=== PATIENT | female | born 1940 | race Caucasian/White ===

== ENCOUNTER 2019-04-20 15:24 | Inpatient (IN) | payer MEDICARE, MEDICAID ==
[2019-04-20] MEDS ORDERED: Sodium Chloride 0.9% 1,000 ML IV SCH (16:15)
--- NOTE | 2019-04-20 16:27 | CR ---
Hip Min 2V or 3V w Pelvis Rt CLINICAL HISTORY: Right hip pain FINDINGS: There is a is placed subcapital fracture of the right femur. There are degenerative changes in the right hip joint. Patient has left hip prosthesis. Bones are osteoporotic. IMPRESSION: Displaced subcapital fracture of the right femur Left hip arthroplasty Osteoporosis
--- NOTE | 2019-04-20 16:29 | CR ---
Cervical Spine 2V or 3V CLINICAL HISTORY: Fall, neck pain FINDINGS: Study is very limited the. Patient slightly rotated. There are severe diffuse degenerative disc disease. There is severe diffuse osteoarthritis. There are calcifications in both carotid bifurcations. IMPRESSION: Very limited study. No obvious subluxation. Subtle fracture or subluxation would be difficult to exclude. Severe degenerative disc disease and severe osteoarthritis If clinically relevant CT cervical spine should be considered
--- NOTE | 2019-04-20 16:34 | EDM.PDOC ---
ED HPI GENERAL MEDICAL PROBLEM - General Chief Complaint: Lower Extremity Injury/Pain Stated Complaint: FELL AND HURT RI HIP Time Seen by Provider: 04/20/19 16:28 Source of Information: Reports: Patient, EMS History Limitations: Reports: No Limitations - History of Present Illness INITIAL COMMENTS - FREE TEXT/NARRATIVE: pt arrived from [facility] in [place]. She was in her kitchen and she reached to something to drink and she fell and she is not sure why she fell. She had immediate pain in the rt hip. She was not able to get up. She also is having pain in the rt side of her neck/ She has some abrasions on her rt hand. She is current with her tetanus. Onset: Today, Sudden Duration: Hour(s): Location: Reports: Neck, Lower Extremity, Right Associated Symptoms: Reports: Other (pain on the rt side of her neck. ) Right Lower Hip Pain Score (Numeric/FACES): 10 Right Anterior Shoulder Pain Score (Numeric/FACES): 5 - Related Data Allergies Allergy/AdvReac Type Severity Reaction Status Date / Time Sulfa (Sulfonamide Allergy Cannot Verified 04/20/19 15:43 Antibiotics) Remember Home Meds: Home Meds Aspirin [Halfprin] 81 mg PO DAILY 04/20/19 [History] Ergocalciferol (Vitamin D2) [Vitamin D2] 2,000 unit PO DAILY 04/20/19 [History] Levothyroxine 75 mcg PO ACBREAKFAST 04/20/19 [History] Lisinopril [Zestril] 10 mg PO DAILY 04/20/19 [History] Nystatin [Nystatin Crm] 30 gm TOP BID 04/20/19 [History] Oxybutynin [Oxybutynin ER] 10 mg PO DAILY 04/20/19 [History] Pioglitazone [Actos] 30 mg PO DAILY 04/20/19 [History] Sertraline [Zoloft] 25 mg PO DAILY 04/20/19 [History] atorvaSTATin [Lipitor] 40 mg PO BEDTIME 04/20/19 [History] Past Medical History HEENT History: Reports: Impaired Vision Cardiovascular History: Reports: CAD, High Cholesterol, Hypertension Gastrointestinal History: Reports: GERD Genitourinary History: Reports: Urinary Incontinence, Other (See Below) Other Genitourinary History: renal insufficiency Musculoskeletal History: Reports: Osteoarthritis, Other (See Below) Other Musculoskeletal History: restless leg syndrome, spinal stenosis Neurological History: Reports: Vertigo Psychiatric History: Reports: Anxiety Endocrine/Metabolic History: Reports: Diabetes, Type II, Hypothyroidism, Other ( See Below) Other Endocrine/Metabolic History: neuropathy - Infectious Disease History Infectious Disease History: Reports: Chicken Pox, Measles, Mumps Social & Family History - Tobacco Use Smoking Status *Q: Never Smoker - Caffeine Use Caffeine Use: Reports: Coffee - Recreational Drug Use Recreational Drug Use: No Review of Systems - Review of Systems Review Of Systems: See Below Constitutional: Reports: No Symptoms Eyes: Reports: No Symptoms Ears: Reports: No Symptoms Nose: Reports: No Symptoms Mouth/Throat: Reports: No Symptoms Respiratory: Reports: No Symptoms Cardiovascular: Reports: No Symptoms GI/Abdominal: Reports: No Symptoms Genitourinary: Reports: No Symptoms Musculoskeletal: Reports: Other (pain in her rt hip area and pain in the rt side of her neck. ) Neurological: Reports: No Symptoms Psychiatric: Reports: Anxiety ED EXAM, GENERAL - Physical Exam Exam: See Below Free Text/Narrative:: pt arrived with pain in the rt hip and pain on the rt side of her neck. Her rt hand has some small abrasions. She was not knocked out. i Exam Limited By: No Limitations General Appearance: Alert, Anxious, Moderate Distress, Other (pupils equal and reactive. ) Ears: Normal TMs Nose: Normal Inspection Throat/Mouth: Normal Inspection Head: Atraumatic Neck: Tender Lateral, Other (pt is tender in the rt post cervical area. ) Respiratory/Chest: No Respiratory Distress Cardiovascular: Regular Rate, Rhythm GI/Abdominal: Soft, Non-Tender (Female) Exam: Deferred, Other ( olivas cath was inserted. ) Rectal (Female) Exam: Deferred Back Exam: Normal Inspection Extremities: Other ( rt hip is very tender to palpate. Any movement causes alot of pain. ) Neurological: Alert, Oriented, Normal Cognition Psychiatric: Normal Affect Course - Vital Signs Last Recorded V/S: Last Vital Signs Temp 36.5 C 04/20/19 16:01 Pulse 72 04/20/19 17:05 Resp 16 04/20/19 17:05 BP 146/55 H 04/20/19 17:05 Pulse Ox 100 04/20/19 17:05 - Orders/Labs/Meds Orders: Active Orders 24 hr Category Date Time Status EKG Documentation Completion [RC] ASDIRECTED Care 04/20/19 16:34 Active Olivas Catheter Insertion [Insert Urinary Catheter] [OM. Care 04/20/19 16:15 Ordered PC] Q24H Urinary Catheter Assessment [RC] ASDIRECTED Care 04/20/19 16:09 Active Chest 1V Frontal [CR] Stat Exams 04/20/19 16:34 Ordered Sodium Chloride 0.9% [Normal Saline] 1,000 ml Med 04/20/19 16:15 Active IV ASDIRECTED EKG 12 Lead [EK] Routine Ther 04/20/19 16:34 Ordered Medication Orders Sodium Chloride (Normal Saline) 1,000 mls @ 500 mls/hr IV ASDIRECTED DANYEL Last Admin: 04/20/19 16:48 Dose: 500 mls/hr Labs: Laboratory Tests 04/20/19 04/20/19 04/20/19 Range/Units 16:20 16:20 16:48 WBC 6.2 (4.5-11.0) K/uL RBC 3.52 (3.30-5.50) M/uL Hgb 11.2 L (12.0-15.0) g/dL Hct 35.1 L (36.0-48.0) % MCV 100 H (80-98) fL MCH 32 H (27-31) pg MCHC 32 (32-36) % Plt Count 216 (150-400) K/uL Neut % (Auto) 80 H (36-66) % Lymph % (Auto) 15 L (24-44) % [place] % (Auto) 5 (2-6) % Eos % (Auto) 0 L (2-4) % Baso % (Auto) 0 (0-1) % Sodium 141 (140-148) mmol/L Potassium 3.6 (3.6-5.2) mmol/L Chloride 105 (100-108) mmol/L Carbon Dioxide 27 (21-32) mmol/L Anion Gap 9.2 (5.0-14.0) mmol/L BUN 18 (7-18) mg/dL Creatinine 0.8 (0.6-1.0) mg/dL Est Cr Clr Drug Dosing 51.31 mL/min Estimated GFR (MDRD) > 60 (>60) Glucose 129 H (74-106) mg/dL Calcium 8.5 (8.5-10.1) mg/dL Total Bilirubin 0.6 (0.2-1.0) mg/dL AST 37 (15-37) U/L ALT 28 (12-78) U/L Alkaline Phosphatase 62 (46-116) U/L Total Protein 6.1 L (6.4-8.2) g/dL Albumin 3.2 L (3.4-5.0) g/dL Globulin 2.9 (2.3-3.5) g/dL Albumin/Globulin Ratio 1.1 L (1.2-2.2) Urine Color Yellow (YELLOW) Urine Appearance Slightly cloudy A (CLEAR) Urine pH 7.0 (5.0-8.0) Ur Specific [place] 1.020 (1.008-1.030) Urine Protein Negative (NEGATIVE) mg/dL Urine Glucose (UA) Negative (NEGATIVE) mg/dL Urine Ketones Negative (NEGATIVE) mg/dL Urine Occult Blood Small H (NEGATIVE) Urine Nitrite Negative (NEGATIVE) Urine Bilirubin Negative (NEGATIVE) Urine Urobilinogen 1.0 (0.2-1.0) EU/dL Ur Leukocyte Esterase Negative (NEGATIVE) Urine RBC 5-10 H (0-5) Urine WBC 0-5 (0-5) Ur Epithelial Cells Rare Amorphous Sediment Not seen Urine Bacteria Few Urine Mucus Not seen Meds: Medications Generic Name Dose Route Start Last Admin Trade Name Freq PRN Reason Stop Dose Admin Sodium Chloride 1,000 mls @ 500 mls/hr 04/20/19 16:15 04/20/19 16:48 Normal Saline IV 500 mls/hr ASDIRECTED [facility] Administration - Re-Assessments/Exams Free Text/Narrative Re-Assessment/Exam: 04/20/19 17:10 pt was tender on the rt post cervical area. A cat scan of her neck was neg. Her rt hip shows a fracture of the neck. Dr randle saw the pt and he plans to do surgery tomorrow. Her hg is on the low side. Her ekg looks ok. Dr aBss will admit and she will have surgery tomorrow. 04/20/19 17:12 Departure - Departure Time of Disposition: 17:12 Disposition: Admitted As Inpatient 65 Condition: Fair Clinical Impression: Closed right hip fracture, Cervical paraspinous muscle spasm, Abrasion of right hand - Discharge Information Referrals: PCP,None [Primary Care Provider] - Forms: ED Department Discharge Care Plan Goals: admit to Dr Bass Sepsis Event Note - Evaluation Sepsis Screening Result: No Definite Risk - Focused Exam Vital Signs: Vital Signs Temp Pulse Resp BP Pulse Ox 04/20/19 17:05 72 16 146/55 H 100 04/20/19 16:01 36.5 C 76 22 H 117/89 96 04/20/19 15:30 36.5 C 76 22 H 117/89 96 Date Exam was Performed: 04/20/19 Time Exam was Performed: 17:07 - My Orders Last 24 Hours: My Active Orders 04/20/19 16:09 Urinary Catheter Assessment [RC] ASDIRECTED 04/20/19 16:15 Olivas Catheter Insertion [Insert Urinary Catheter] [OM.PC] Q24H Sodium Chloride 0.9% [Normal Saline] 1,000 ml IV ASDIRECTED 04/20/19 16:34 EKG Documentation Completion [RC] ASDIRECTED Chest 1V Frontal [CR] Stat EKG 12 Lead [EK] Routine - Assessment/Plan Last 24 Hours: My Active Orders 04/20/19 16:09 Urinary Catheter Assessment [RC] ASDIRECTED 04/20/19 16:15 Olivas Catheter Insertion [Insert Urinary Catheter] [OM.PC] Q24H Sodium Chloride 0.9% [Normal Saline] 1,000 ml IV ASDIRECTED 04/20/19 16:34 EKG Documentation Completion [RC] ASDIRECTED Chest 1V Frontal [CR] Stat EKG 12 Lead [EK] Routine
--- NOTE | 2019-04-20 17:03 | CRLCT ---
Indication: Pain in the right side of the neck. Technique: CT cervical spine without IV contrast. Coronal and sagittal reconstructions. Comparison: Cervical spine radiograph 04/20/2019. Findings: No acute fracture or traumatic malalignment of the cervical spine. Minimal retrolisthesis of C3 on C4. Mild anterolisthesis of C7 on T1 and T1 on T2. Spondylotic changes of the cervical spine including hypertrophic spurring, facet arthropathy, and disc space narrowing. Moderate neural foraminal narrowing on the right at C3-C4, mild right and moderate left at C4-C5, mild bilaterally at C5-C6, and mild on the left at C6-C7. Multilevel posterior disc osteophyte complexes which cause mild spinal canal stenosis at C4-C5 and C5-C6. Visualized intracranial contents are unremarkable. Carotid bulb calcifications bilaterally. The thyroid gland is diminutive. Biapical pleural scarring. Paraspinal soft tissues are unremarkable. Impression: 1. No acute fracture or traumatic malalignment of the cervical spine. 2. Spondylotic changes of the cervical spine. 3. Minimal retrolisthesis of C3 on C4. Mild anterolisthesis of C7 on T1 and T1 on T2. 4. Varying degrees of multilevel bilateral neural foraminal narrowing. 5. Posterior disc osteophyte complexes which cause mild spinal canal stenosis at C4-C5 and C5-C6. Please note that all CT scans at this facility use dose modulation, iterative reconstruction, and/or weight-based dosing when appropriate to reduce radiation dose to as low as reasonably achievable. Dictated by Chandni Rodriguez MD @ Apr 20 2019 4:53PM Signed by Dr. Chandni Rodriguez @ Apr 20 2019 5:03PM
--- NOTE | 2019-04-20 17:56 | PCM.HP.2 ---
H&P History of Present Illness - General Date of Service: 04/20/19 Admit Problem/Dx: Admission Diagnosis/Problem Admission Diagnosis/Problem Fracture of hip Source of Information: Patient, Provider History Limitations: Reports: No Limitations - History of Present Illness Initial Comments - Free Text/Narative: CC: I hurt my hip HPI: Pinky presents to the emergency room today after falling and landing on her right hip. She reported immediate severe sharp right hip pain. The pain did not radiate. Pain was better when she rolled onto her left side. She has not required any pain medication in the emergency room. Any sort of movement of the right leg causes severe pain but as long as she is sitting still she is fairly comfortable. The fall happened while she was trying to catch something that had slipped out of her hand. She lost her balance and fell down striking her right hip and her right arm as well as the right side of her head. She did not lose consciousness. She does complain of some achy pain in the right side of her neck. No complaints of pain in the right arm or shoulder. She does have some pain in the right hand in the area of the skin tear. She has felt well prior to onset of the fall. No recent difficulties with fevers or chills. No nausea or abdominal pain. No change in bowel or bladder habits. She does report a slight increase in her tremors over the past few days. She is not very active and gets around using a walker or a cane. She has not had previous difficulty with surgeries or anesthesia other than she thinks that she is sensitive to the medications and needs a smaller dose than usual. Work-up in the emergency room revealed evidence for a right hip fracture near the femoral head. This is a dislocated fracture. X-rays and CT of the cervical spine were unremarkable for fracture. The patient will be admitted for operative management of the right hip fracture. Right Lower Hip Pain Score (Numeric/FACES): 10 Right Anterior Shoulder Pain Score (Numeric/FACES): 5 - Related Data Allergies/Adverse Reactions: Allergies Allergy/AdvReac Type Severity Reaction Status Date / Time Sulfa (Sulfonamide Allergy Cannot Verified 04/20/19 15:43 Antibiotics) Remember Home Medications: Home Meds Aspirin [Halfprin] 81 mg PO DAILY 04/20/19 [History] Ergocalciferol (Vitamin D2) [Vitamin D2] 2,000 unit PO DAILY 04/20/19 [History] Levothyroxine 75 mcg PO ACBREAKFAST 04/20/19 [History] Lisinopril [Zestril] 10 mg PO DAILY 04/20/19 [History] Nystatin [Nystatin Crm] 30 gm TOP BID 04/20/19 [History] Oxybutynin [Oxybutynin ER] 10 mg PO DAILY 04/20/19 [History] Pioglitazone [Actos] 30 mg PO DAILY 04/20/19 [History] Sertraline [Zoloft] 25 mg PO DAILY 04/20/19 [History] atorvaSTATin [Lipitor] 40 mg PO BEDTIME 04/20/19 [History] Past Medical History HEENT History: Reports: Impaired Vision Cardiovascular History: Reports: CAD, High Cholesterol, Hypertension Gastrointestinal History: Reports: GERD Genitourinary History: Reports: Urinary Incontinence, Other (See Below) Other Genitourinary History: renal insufficiency Musculoskeletal History: Reports: Osteoarthritis, Other (See Below) Other Musculoskeletal History: restless leg syndrome, spinal stenosis Neurological History: Reports: Vertigo Psychiatric History: Reports: Anxiety Endocrine/Metabolic History: Reports: Diabetes, Type II, Hypothyroidism, Other ( See Below) Other Endocrine/Metabolic History: neuropathy - Infectious Disease History Infectious Disease History: Reports: Chicken Pox, Measles, Mumps Social & Family History - Family History Other Family History: No family history of difficulty with anesthesia - Tobacco Use Smoking Status *Q: Never Smoker - Caffeine Use Caffeine Use: Reports: Coffee - Alcohol Use Alcohol Use History: No - Recreational Drug Use Recreational Drug Use: No H&P Review of Systems - Review of Systems: Review Of Systems: See Below Free Text/Narrative: A complete 12 point review of systems was obtained. Pertinent positives and negatives are noted in the history of present illness. All other systems were reviewed and were negative except as noted. Exam - Exam Exam: See Below - Vital Signs Vital Signs: Last Vital Signs Temp 36.5 C 04/20/19 16:01 Pulse 72 04/20/19 17:05 Resp 16 04/20/19 17:05 BP 146/55 H 04/20/19 17:05 Pulse Ox 100 04/20/19 17:05 Weight: 63.503 kg - Exam Quality Assessment: No: Supplemental Oxygen General: Alert, Oriented, Cooperative. No: Mild Distress HEENT: Conjunctiva Clear, Mucosa Moist & [place]. No: Scleral Icterus Neck: Supple. No: Trachea Midline, Lymphadenopathy Lungs: Clear to Auscultation, Normal Respiratory Effort Cardiovascular: Regular Rate, Regular Rhythm. No: Systolic Murmur GI/Abdominal Exam: Normal Bowel Sounds, Soft, Non-Tender, No Distention Extremities: No Pedal Edema, Other (right leg shortened ). No: Increased Warmth Peripheral Pulses: 2+: Dorsalis Pedis (L), Dorsalis Pedis (R) Skin: Warm, Dry Neuro Extensive - Mental Status: Alert, Oriented x3, Nl Response to Commands Neuro Extensive - Motor, Sensory, Reflexes: No: Dysarthria, Abnormal Motor, Tremor Psychiatric: Alert, Normal Affect - Patient Data Lab Results Last 24 hrs: Laboratory Results - last 24 hr 04/20/19 04/20/19 04/20/19 Range/Units 16:20 16:20 16:48 WBC 6.2 (4.5-11.0) K/uL RBC 3.52 (3.30-5.50) M/uL Hgb 11.2 L (12.0-15.0) g/dL Hct 35.1 L (36.0-48.0) % MCV 100 H (80-98) fL MCH 32 H (27-31) pg MCHC 32 (32-36) % Plt Count 216 (150-400) K/uL Neut % (Auto) 80 H (36-66) % Lymph % (Auto) 15 L (24-44) % [place] % (Auto) 5 (2-6) % Eos % (Auto) 0 L (2-4) % Baso % (Auto) 0 (0-1) % Sodium 141 (140-148) mmol/L Potassium 3.6 (3.6-5.2) mmol/L Chloride 105 (100-108) mmol/L Carbon Dioxide 27 (21-32) mmol/L Anion Gap 9.2 (5.0-14.0) mmol/L BUN 18 (7-18) mg/dL Creatinine 0.8 (0.6-1.0) mg/dL Est Cr Clr Drug Dosing 51.31 mL/min Estimated GFR (MDRD) > 60 (>60) Glucose 129 H (74-106) mg/dL Calcium 8.5 (8.5-10.1) mg/dL Total Bilirubin 0.6 (0.2-1.0) mg/dL AST 37 (15-37) U/L ALT 28 (12-78) U/L Alkaline Phosphatase 62 (46-116) U/L Total Protein 6.1 L (6.4-8.2) g/dL Albumin 3.2 L (3.4-5.0) g/dL Globulin 2.9 (2.3-3.5) g/dL Albumin/Globulin Ratio 1.1 L (1.2-2.2) Urine Color Yellow (YELLOW) Urine Appearance Slightly cloudy A (CLEAR) Urine pH 7.0 (5.0-8.0) Ur Specific [place] 1.020 (1.008-1.030) Urine Protein Negative (NEGATIVE) mg/dL Urine Glucose (UA) Negative (NEGATIVE) mg/dL Urine Ketones Negative (NEGATIVE) mg/dL Urine Occult Blood Small H (NEGATIVE) Urine Nitrite Negative (NEGATIVE) Urine Bilirubin Negative (NEGATIVE) Urine Urobilinogen 1.0 (0.2-1.0) EU/dL Ur Leukocyte Esterase Negative (NEGATIVE) Urine RBC 5-10 H (0-5) Urine WBC 0-5 (0-5) Ur Epithelial Cells Rare Amorphous Sediment Not seen Urine Bacteria Few Urine Mucus Not seen Result Diagrams: 04/20/19 16:20 04/20/19 16:20 Imaging Impressions Last 24 hrs: C spine XR - no fracture. severe arthritis CT cervical spine - no fracture. severe arthritis XR right hip - images personally reviewed - fracture of the right femur near the femoral head with dislocation. EKG INTERPRETATION EKG Date: 04/20/19 Rhythm: NSR Rate (Beats/Min): 72 [place]: Normal P-Wave: Present QRS: Normal ST-T: Normal QT: Normal Sepsis Event Note - Evaluation Sepsis Screening Result: No Definite Risk - Focused Exam Vital Signs: Vital Signs Temp Pulse Resp BP Pulse Ox 04/20/19 17:05 72 16 146/55 H 100 04/20/19 16:01 36.5 C 76 22 H 117/89 96 04/20/19 15:30 36.5 C 76 22 H 117/89 96 Date Exam was Performed: 04/20/19 Time Exam was Performed: 18:17 *Q Meaningful Use (ADM) - VTE *Q VTE Pharmacological Contraindications *Q: Patient Scheduled Surgery - VTE Risk Assess *Q Each Risk Factor Represents 1 Point: None Total Score 1 Point Risk Factors: 0 Each Risk Factor Represents 2 Points: Major surgery greater than 45 minutes Total Score 2 Point Risk Factors: 2 Each Risk Factor Represents 3 Points: Age 75 Years or Greater Total Score 3 Point Risk Factors: 3 Each Risk Factor Represents 5 Points: Hip, Pelvis or Leg Fracture, Less than 1 month Total Score 5 Point Risk Factors: 5 Venous Thromboembolism Risk Factor Score *Q: 10 - Problem List (1) Closed right hip fracture SNOMED Code(s): 587403746 ICD Code: S72.001A - FRACTURE OF UNSP PART OF NECK OF RIGHT FEMUR, INIT Status: Acute Current Visit: Yes Qualifiers: Encounter type: initial encounter Qualified Code(s): S72.001A - Fracture of unspecified part of neck of right femur, initial encounter for closed fracture (2) DM II (diabetes mellitus, type II), controlled SNOMED Code(s): 45440429, 775669922 ICD Code: E11.9 - TYPE 2 DIABETES MELLITUS WITHOUT COMPLICATIONS Status: Chronic Current Visit: Yes Qualifiers: Diabetes mellitus mcc insulin use: without oil heaterman use Diabetes mellitus complication status: without complication Qualified Code(s): E11.9 - Type 2 diabetes mellitus without complications (3) Hypothyroidism SNOMED Code(s): 83623743 ICD Code: E03.9 - HYPOTHYROIDISM, UNSPECIFIED Status: Chronic Current Visit: Yes Qualifiers: Hypothyroidism type: acquired Qualified Code(s): E03.9 - Hypothyroidism, unspecified Problem List Initiated/Reviewed/Updated: Yes Orders Last 24hrs: Active Orders 24 hr Category Date Time Status Patient Status Manage Transfer [TRANSFER] Routine ADT 04/20/19 17:49 Ordered EKG Documentation Completion [RC] ASDIRECTED Care 04/20/19 16:34 Active Tenorio Catheter Insertion [Insert Urinary Catheter] [OM. Care 04/20/19 16:15 Ordered PC] Q24H Urinary Catheter Assessment [RC] ASDIRECTED Care 04/20/19 16:09 Active Chest 1V Frontal [CR] Stat Exams 04/20/19 16:34 Ordered Sodium Chloride 0.9% [Normal Saline] 1,000 ml Med 04/20/19 16:15 Active IV ASDIRECTED Resuscitation Status Routine Resus Stat 04/20/19 17:51 Ordered EKG 12 Lead [EK] Routine Ther 04/20/19 16:34 Ordered Medication Orders Sodium Chloride (Normal Saline) 1,000 mls @ 500 mls/hr IV ASDIRECTED DANYEL Last Admin: 04/20/19 16:48 Dose: 500 mls/hr Assessment/Plan Comment:: ASSESSMENT AND PLAN - Closed, displaced fracture of the right femoral neck-secondary to fall at home. Surgical intervention is indicated. Patient does not have a very good functional status but otherwise I do not see any obvious contraindication to surgical intervention. No significant cardiac history. No concerning personal or family history of difficulty with anesthesia. No evidence for active infection. Patient is in optimal achievable medical condition at this time for a semiurgent surgical intervention. -Pain control -Nothing by mouth after midnight -Surgical intervention planned with Dr Carlitos Kiser tomorrow Type 2 diabetes mellitus, controlled-she is on one oral medication. This will be held while she is n.p.o. and in the immediate postop period. -Hold pioglitazone -Low-dose sliding scale insulin with Accu-Cheks Essential hypertension-planning to hold her oral medication until we see how her blood pressure fares postoperatively. -Hold lisinopril Hypothyroidism-she does note an increase in tremors recently. -Continue supplementation -TSH in the morning Maintenance issues - - DVT prophylaxis -mechanical - GI prophylaxis -not indicated - Nutrition -consistent carbohydrates tonight, nothing by mouth after midnight - Tenorio catheter -placed in the emergency room CODE STATUS -full code Admission justification -this patient will be admitted for inpatient services and is medically appropriate meeting medical necessity for inpatient admission as outlined in my documentation. I reasonably expect the patient will require inpatient services that span a period time over 2 midnights. I reasonably expect this patient to be discharged or transferred within 96 hours after admission to the [facility]. Disposition -I would anticipate discharge to a fdc facility for rehab after the hospital stay Primary care physician -Karla Bass M.D. - Mortality Measure Prognosis:: Good
[2019-04-20] MEDS ORDERED: Albuterol 0.083% 2.5 MG/3 ML Neb Soln NEB PRN (18:14)
[2019-04-20] MEDS ORDERED: oxyCODONE 5 MG Tab PO PRN (18:14)
[2019-04-20] MEDS ORDERED: Melatonin 3 MG Tab PO PRN (18:14)
[2019-04-20] MEDS ORDERED: Ondansetron 4 MG Tab.DIS PO PRN (18:14)
[2019-04-20] MEDS ORDERED: Magnesium Hydroxide 400 MG/5 ML Susp 30 ML Cup PO PRN (18:14)
[2019-04-20] MEDS ORDERED: LORazepam 2 MG/ML SDV IVPUSH PRN (18:14)
[2019-04-20] MEDS ORDERED: Ondansetron 4 MG/2 ML SDV IV PRN (18:14)
[2019-04-20] MEDS ORDERED: HYDROmorphone 0.5 MG/0.5 ML Syringe IVPUSH PRN (18:14)
--- NOTE | 2019-04-20 18:20 | CRLCR ---
Indication: Pre Op Technique: A single AP portable view of the chest. Comparison: None Findings: The heart is borderline in size. The lungs are hyperinflated. No infiltrate, pleural effusion, pneumothorax identified. Impression: No acute cardiopulmonary process Dictated by Cherelle Weaver MD @ Apr 20 2019 6:17PM Signed by Dr. Cherelle eWaver @ Apr 20 2019 6:19PM
[2019-04-20] MEDS: atorvaSTATin 20 MG Tab PO SCH (20:43)
[2019-04-20] MEDS: Acetaminophen 500 MG Tab PO SCH (20:43)
[2019-04-20] MEDS: Insulin Lispro 100 Unit/ML 3 ML KwikPen SUBCUT SCH (20:53)
[2019-04-20] MEDS: Sodium Chloride 0.9% 1,000 ML IV SCH (22:29)
[2019-04-21] MEDS: Insulin Lispro 100 Unit/ML 3 ML KwikPen SUBCUT SCH ×4 (08:40→21:00)
[2019-04-21] MEDS: Levothyroxine 25 MCG Tab PO SCH (08:40)
[2019-04-21] MEDS: Acetaminophen 500 MG Tab PO SCH ×3 (09:59→20:59)
[2019-04-21] MEDS: Oxybutynin 5 MG Tab PO SCH ×2 (09:59→20:59)
[2019-04-21] MEDS: Aspirin 81 MG Tab.EC PO SCH (09:59)
[2019-04-21] MEDS: Sertraline 25 MG Tab PO SCH (10:00)
[2019-04-21] MEDS: Sodium Chloride 0.9% 1,000 ML IV SCH ×2 (11:47→19:15)
--- NOTE | 2019-04-21 12:26 | PCM.CONS ---
H&P History of Present Illness - General Date of Service: 04/20/19 Admit Problem/Dx: Admission Diagnosis/Problem Admission Diagnosis/Problem Fracture of hip Source of Information: Patient History Limitations: Reports: No Limitations - History of Present Illness Initial Comments - Free Text/Narative: 78 year old female presented to the ED with right hip pain after a fall at home today. Attempted to catch something that had slipped from her hands and fell onto her right side. Was not able to get up or weight bear on her right leg. hit her right arm as well, mild pain there with a small skin tear on her hand. No LOC, did not hit her head. 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 Onset of Symptoms: Reports: Today, Sudden Location: Reports: Lower Extremity, Right Quality: Reports: Sharp, Stabbing Severity: Severe Improves with: Reports: Immobilization Worsens with: Reports: Movement Associated Symptoms: Reports: No Other Symptoms Right Lower Hip Pain Score (Numeric/FACES): 7 Right Anterior Shoulder Pain Score (Numeric/FACES): 5 - Related Data Allergies/Adverse Reactions: Allergies Allergy/AdvReac Type Severity Reaction Status Date / Time Sulfa (Sulfonamide Allergy Cannot Verified 04/20/19 15:43 Antibiotics) Remember Home Medications: Home Meds Aspirin [Halfprin] 81 mg PO DAILY 04/20/19 [History] Ergocalciferol (Vitamin D2) [Vitamin D2] 2,000 unit PO DAILY 04/20/19 [History] Levothyroxine 75 mcg PO ACBREAKFAST 04/20/19 [History] Lisinopril [Zestril] 10 mg PO DAILY 04/20/19 [History] Nystatin [Nystatin Crm] 30 gm TOP BID 04/20/19 [History] Oxybutynin [Oxybutynin ER] 10 mg PO DAILY 04/20/19 [History] Pioglitazone [Actos] 30 mg PO DAILY 04/20/19 [History] Sertraline [Zoloft] 25 mg PO DAILY 04/20/19 [History] atorvaSTATin [Lipitor] 40 mg PO BEDTIME 04/20/19 [History] Past Medical History HEENT History: Reports: Impaired Vision Cardiovascular History: Reports: CAD, High Cholesterol, Hypertension Gastrointestinal History: Reports: GERD Genitourinary History: Reports: Urinary Incontinence, Other (See Below) Other Genitourinary History: renal insufficiency Musculoskeletal History: Reports: Osteoarthritis, Other (See Below) Other Musculoskeletal History: restless leg syndrome, spinal stenosis Neurological History: Reports: Vertigo Psychiatric History: Reports: Anxiety Endocrine/Metabolic History: Reports: Diabetes, Type II, Hypothyroidism, Other ( See Below) Other Endocrine/Metabolic History: neuropathy - Infectious Disease History Infectious Disease History: Reports: Chicken Pox, Measles, Mumps Social & Family History - Family History Other Family History: No family history of difficulty with anesthesia - Tobacco Use Smoking Status *Q: Never Smoker Second Hand Smoke Exposure: No - Caffeine Use Caffeine Use: Reports: None - Recreational Drug Use Recreational Drug Use: No Drug Use in Last 12 Months: No H&P Review of Systems - Review of Systems: Review Of Systems: Comprehensive ROS is negative, except as noted in HPI. Exam - Exam Exam: See Below - Vital Signs Vital Signs: Last Vital Signs Temp 37.2 C 04/21/19 11:00 Pulse 71 04/21/19 11:00 Resp 16 04/21/19 11:00 BP 111/47 L 04/21/19 11:00 Pulse Ox 92 L 04/21/19 11:00 Weight: 63.503 kg - Exam General: Alert, Oriented Extremities: Leg Pain, Limited Range of Motion, Other (Pain with log roll, left leg slightly shorter) Peripheral Pulses: 1+: Dorsalis Pedis (L), Dorsalis Pedis (R) Skin: Warm, Dry Neuro Extensive - Mental Status: Alert, Oriented x3, Normal Mood/Affect, Normal Cognition Neuro Extensive - Motor, Sensory, Reflexes: CN II-XII Intact Psychiatric: Alert, Normal Affect, Normal Mood - Patient Data Lab Results Last 24 hrs: Laboratory Results - last 24 hr 04/20/19 04/20/19 04/20/19 Range/Units 16:20 16:20 16:48 WBC 6.2 (4.5-11.0) K/uL RBC 3.52 (3.30-5.50) M/uL Hgb 11.2 L (12.0-15.0) g/dL Hct 35.1 L (36.0-48.0) % MCV 100 H (80-98) fL MCH 32 H (27-31) pg MCHC 32 (32-36) % Plt Count 216 (150-400) K/uL Neut % (Auto) 80 H (36-66) % Lymph % (Auto) 15 L (24-44) % [place] % (Auto) 5 (2-6) % Eos % (Auto) 0 L (2-4) % Baso % (Auto) 0 (0-1) % Sodium 141 (140-148) mmol/L Potassium 3.6 (3.6-5.2) mmol/L Chloride 105 (100-108) mmol/L Carbon Dioxide 27 (21-32) mmol/L Anion Gap 9.2 (5.0-14.0) mmol/L BUN 18 (7-18) mg/dL Creatinine 0.8 (0.6-1.0) mg/dL Est Cr Clr Drug Dosing 51.31 mL/min Estimated GFR (MDRD) > 60 (>60) Glucose 129 H (74-106) mg/dL Calcium 8.5 (8.5-10.1) mg/dL Total Bilirubin 0.6 (0.2-1.0) mg/dL AST 37 (15-37) U/L ALT 28 (12-78) U/L Alkaline Phosphatase 62 (46-116) U/L Total Protein 6.1 L (6.4-8.2) g/dL Albumin 3.2 L (3.4-5.0) g/dL Globulin 2.9 (2.3-3.5) g/dL Albumin/Globulin Ratio 1.1 L (1.2-2.2) TSH, Ultra Sensitive (0.358-3.740) uIU/mL Urine Color Yellow (YELLOW) Urine Appearance Slightly cloudy A (CLEAR) Urine pH 7.0 (5.0-8.0) Ur Specific [place] 1.020 (1.008-1.030) Urine Protein Negative (NEGATIVE) mg/dL Urine Glucose (UA) Negative (NEGATIVE) mg/dL Urine Ketones Negative (NEGATIVE) mg/dL Urine Occult Blood Small H (NEGATIVE) Urine Nitrite Negative (NEGATIVE) Urine Bilirubin Negative (NEGATIVE) Urine Urobilinogen 1.0 (0.2-1.0) EU/dL Ur Leukocyte Esterase Negative (NEGATIVE) Urine RBC 5-10 H (0-5) Urine WBC 0-5 (0-5) Ur Epithelial Cells Rare Amorphous Sediment Not seen Urine Bacteria Few Urine Mucus Not seen Blood Type Gel Antibody Screen Crossmatch 04/21/19 04/21/19 04/21/19 Range/Units 05:30 05:30 08:41 WBC 7.2 (4.5-11.0) K/uL RBC 3.06 L (3.30-5.50) M/uL Hgb 9.6 L (12.0-15.0) g/dL Hct 30.7 L (36.0-48.0) % MCV 100 H (80-98) fL MCH 31 (27-31) pg MCHC 31 L (32-36) % Plt Count 194 (150-400) K/uL Neut % (Auto) (36-66) % Lymph % (Auto) (24-44) % [place] % (Auto) (2-6) % Eos % (Auto) (2-4) % Baso % (Auto) (0-1) % Sodium 140 (140-148) mmol/L Potassium 3.6 (3.6-5.2) mmol/L Chloride 107 (100-108) mmol/L Carbon Dioxide 25 (21-32) mmol/L Anion Gap 8.0 (5.0-14.0) mmol/L BUN 20 H (7-18) mg/dL Creatinine 0.7 (0.6-1.0) mg/dL Est Cr Clr Drug Dosing 58.64 mL/min Estimated GFR (MDRD) > 60 (>60) Glucose 121 H (74-106) mg/dL Calcium 7.8 L (8.5-10.1) mg/dL Total Bilirubin (0.2-1.0) mg/dL AST (15-37) U/L ALT (12-78) U/L Alkaline Phosphatase (46-116) U/L Total Protein (6.4-8.2) g/dL Albumin (3.4-5.0) g/dL Globulin (2.3-3.5) g/dL Albumin/Globulin Ratio (1.2-2.2) TSH, Ultra Sensitive 1.233 (0.358-3.740) uIU/mL Urine Color (YELLOW) Urine Appearance (CLEAR) Urine pH (5.0-8.0) Ur Specific [place] (1.008-1.030) Urine Protein (NEGATIVE) mg/dL Urine Glucose (UA) (NEGATIVE) mg/dL Urine Ketones (NEGATIVE) mg/dL Urine Occult Blood (NEGATIVE) Urine Nitrite (NEGATIVE) Urine Bilirubin (NEGATIVE) Urine Urobilinogen (0.2-1.0) EU/dL Ur Leukocyte Esterase (NEGATIVE) Urine RBC (0-5) Urine WBC (0-5) Ur Epithelial Cells Amorphous Sediment Urine Bacteria Urine Mucus Blood Type A POSITIVE Gel Antibody Screen Negative Crossmatch See Detail Result Diagrams: 04/21/19 05:30 04/21/19 05:30 Sepsis Event Note - Evaluation Sepsis Screening Result: No Definite Risk - Focused Exam Vital Signs: Vital Signs Temp Pulse Resp BP Pulse Ox 04/21/19 11:00 37.2 C 71 16 111/47 L 92 L 04/21/19 07:00 37.2 C 64 16 110/43 L 94 L 04/21/19 03:00 37.6 C 66 18 107/40 L 95 Date Exam was Performed: 04/21/19 Time Exam was Performed: 12:21 Consult PN Assessment/Plan (1) Closed right hip fracture SNOMED Code(s): 611535147 Code(s): S72.001A - FRACTURE OF UNSP PART OF NECK OF RIGHT FEMUR, INIT Current Visit: Yes Comment: Displaced femoral neck Qualifiers: Encounter type: initial encounter Qualified Code(s): S72.001A - Fracture of unspecified part of neck of right femur, initial encounter for closed fracture Assessment:: Displaced right femoral neck fracture after a fall Problem List Initiated/Reviewed/Updated: Yes Plan: Recommend hemiarthroplasty right hip. Admit for preop evaluation, EKG, labs, etc. Can proceed tomorrow if medically stable. Discussed procedure with patient, she understands and agrees with the plan.
[2019-04-21] MEDS ORDERED: Midazolam 1 MG/ML 2 ML SDV ONE (15:12)
[2019-04-21] MEDS ORDERED: fentaNYL 100 MCG/2 ML SDV ONE (15:12)
[2019-04-21] MEDS ORDERED: Propofol 200 MG/20 ML SDV ONE ×2 (15:12→17:48)
[2019-04-21] MEDS ORDERED: ceFAZolin 2 GM in Premix Bag 1 BAG IV ONE (15:30)
--- NOTE | 2019-04-21 16:15 | PCM.PN ---
- General Info Date of Service: 04/21/19 Subjective Update: There were no acute events overnight. Pain has been well controlled. Patient is a little confused today after recently having received a pain medication dose. She thinks that someone was having a conversation outside of her window. Her hip is comfortable as long as she does not try to move. She does not feel short of breath. No nausea or vomiting. Functional Status: Reports: Pain Controlled - Review of Systems Neurological: Reports: Confusion - Patient Data Vitals - Most Recent: Last Vital Signs Temp 37.6 C 04/21/19 14:31 Pulse 67 04/21/19 14:31 Resp 16 04/21/19 14:31 BP 114/40 L 04/21/19 14:31 Pulse Ox 95 04/21/19 14:31 Weight - Most Recent: 63.503 kg I&O - Last 24 Hours: Intake & Output 04/21/19 04/21/19 04/21/19 06:59 14:59 22:59 Intake Total 788 Output Total 325 Balance 463 Lab Results Last 24 Hours: Laboratory Results - last 24 hr 04/20/19 04/20/19 04/20/19 Range/Units 16:20 16:20 16:48 WBC 6.2 (4.5-11.0) K/uL RBC 3.52 (3.30-5.50) M/uL Hgb 11.2 L (12.0-15.0) g/dL Hct 35.1 L (36.0-48.0) % MCV 100 H (80-98) fL MCH 32 H (27-31) pg MCHC 32 (32-36) % Plt Count 216 (150-400) K/uL Neut % (Auto) 80 H (36-66) % Lymph % (Auto) 15 L (24-44) % [place] % (Auto) 5 (2-6) % Eos % (Auto) 0 L (2-4) % Baso % (Auto) 0 (0-1) % Sodium 141 (140-148) mmol/L Potassium 3.6 (3.6-5.2) mmol/L Chloride 105 (100-108) mmol/L Carbon Dioxide 27 (21-32) mmol/L Anion Gap 9.2 (5.0-14.0) mmol/L BUN 18 (7-18) mg/dL Creatinine 0.8 (0.6-1.0) mg/dL Est Cr Clr Drug Dosing 51.31 mL/min Estimated GFR (MDRD) > 60 (>60) Glucose 129 H (74-106) mg/dL Calcium 8.5 (8.5-10.1) mg/dL Total Bilirubin 0.6 (0.2-1.0) mg/dL AST 37 (15-37) U/L ALT 28 (12-78) U/L Alkaline Phosphatase 62 (46-116) U/L Total Protein 6.1 L (6.4-8.2) g/dL Albumin 3.2 L (3.4-5.0) g/dL Globulin 2.9 (2.3-3.5) g/dL Albumin/Globulin Ratio 1.1 L (1.2-2.2) TSH, Ultra Sensitive (0.358-3.740) uIU/mL Urine Color Yellow (YELLOW) Urine Appearance Slightly cloudy A (CLEAR) Urine pH 7.0 (5.0-8.0) Ur Specific [place] 1.020 (1.008-1.030) Urine Protein Negative (NEGATIVE) mg/dL Urine Glucose (UA) Negative (NEGATIVE) mg/dL Urine Ketones Negative (NEGATIVE) mg/dL Urine Occult Blood Small H (NEGATIVE) Urine Nitrite Negative (NEGATIVE) Urine Bilirubin Negative (NEGATIVE) Urine Urobilinogen 1.0 (0.2-1.0) EU/dL Ur Leukocyte Esterase Negative (NEGATIVE) Urine RBC 5-10 H (0-5) Urine WBC 0-5 (0-5) Ur Epithelial Cells Rare Amorphous Sediment Not seen Urine Bacteria Few Urine Mucus Not seen Blood Type Gel Antibody Screen Crossmatch 04/21/19 04/21/19 04/21/19 Range/Units 05:30 05:30 08:41 WBC 7.2 (4.5-11.0) K/uL RBC 3.06 L (3.30-5.50) M/uL Hgb 9.6 L (12.0-15.0) g/dL Hct 30.7 L (36.0-48.0) % MCV 100 H (80-98) fL MCH 31 (27-31) pg MCHC 31 L (32-36) % Plt Count 194 (150-400) K/uL Neut % (Auto) (36-66) % Lymph % (Auto) (24-44) % [place] % (Auto) (2-6) % Eos % (Auto) (2-4) % Baso % (Auto) (0-1) % Sodium 140 (140-148) mmol/L Potassium 3.6 (3.6-5.2) mmol/L Chloride 107 (100-108) mmol/L Carbon Dioxide 25 (21-32) mmol/L Anion Gap 8.0 (5.0-14.0) mmol/L BUN 20 H (7-18) mg/dL Creatinine 0.7 (0.6-1.0) mg/dL Est Cr Clr Drug Dosing 58.64 mL/min Estimated GFR (MDRD) > 60 (>60) Glucose 121 H (74-106) mg/dL Calcium 7.8 L (8.5-10.1) mg/dL Total Bilirubin (0.2-1.0) mg/dL AST (15-37) U/L ALT (12-78) U/L Alkaline Phosphatase (46-116) U/L Total Protein (6.4-8.2) g/dL Albumin (3.4-5.0) g/dL Globulin (2.3-3.5) g/dL Albumin/Globulin Ratio (1.2-2.2) TSH, Ultra Sensitive 1.233 (0.358-3.740) uIU/mL Urine Color (YELLOW) Urine Appearance (CLEAR) Urine pH (5.0-8.0) Ur Specific [place] (1.008-1.030) Urine Protein (NEGATIVE) mg/dL Urine Glucose (UA) (NEGATIVE) mg/dL Urine Ketones (NEGATIVE) mg/dL Urine Occult Blood (NEGATIVE) Urine Nitrite (NEGATIVE) Urine Bilirubin (NEGATIVE) Urine Urobilinogen (0.2-1.0) EU/dL Ur Leukocyte Esterase (NEGATIVE) Urine RBC (0-5) Urine WBC (0-5) Ur Epithelial Cells Amorphous Sediment Urine Bacteria Urine Mucus Blood Type A POSITIVE Gel Antibody Screen Negative Crossmatch See Detail Med Orders - Current: Current Medications Acetaminophen (Tylenol Extra Strength) 1,000 mg PO TID [facility] Last Admin: 04/21/19 14:18 Dose: Not Given Albuterol (Proventil Neb Soln) 2.5 mg NEB Q4H PRN PRN Reason: Shortness Of Breath/wheezing Aspirin (Halfprin) 81 mg PO DAILY [facility] Last Admin: 04/21/19 09:59 Dose: Not Given Atorvastatin Calcium (Lipitor) 40 mg PO BEDTIME [facility] Last Admin: 04/20/19 20:43 Dose: 40 mg Hydromorphone HCl (Dilaudid) 0.5 mg IVPUSH Q2H PRN PRN Reason: Pain (severe 7-10) Last Admin: 04/21/19 10:04 Dose: 0.5 mg Sodium Chloride (Normal Saline) 1,000 mls @ 75 mls/hr IV ASDIRECTED [facility] Last Admin: 04/21/19 11:47 Dose: 75 mls/hr Insulin Human Lispro (Humalog) 0 unit SUBCUT QIDACANDBED [facility]; Protocol Last Admin: 04/21/19 11:49 Dose: Not Given Levothyroxine Sodium (Levothyroxine) 75 mcg PO ACBREAKFAST [facility] Last Admin: 04/21/19 08:40 Dose: Not Given Lorazepam (Ativan) 0.5 mg IVPUSH Q4H PRN PRN Reason: Nausea/Vomiting Magnesium Hydroxide (Milk Of Magnesia) 30 ml PO Q12H PRN PRN Reason: Constipation Melatonin (Melatonin) 9 mg PO BEDTIME PRN PRN Reason: Sleep Last Admin: 04/20/19 20:43 Dose: 9 mg Ondansetron HCl (Zofran Odt) 4 mg PO Q6H PRN PRN Reason: Nausea able to take PO Ondansetron HCl (Zofran) 4 mg IV Q6H PRN PRN Reason: Nausea/Vomiting Oxybutynin Chloride (Oxybutynin) 5 mg PO BID [facility] Last Admin: 04/21/19 09:59 Dose: Not Given Oxycodone HCl (Oxycodone) 5 - 10 mg PO Q4H PRN PRN Reason: Pain Last Admin: 04/21/19 00:37 Dose: 5 mg Senna/Docusate Sodium (Senna Plus) 1 tab PO BID PRN PRN Reason: Constipation Sertraline HCl (Zoloft) 25 mg PO DAILY [facility] Last Admin: 04/21/19 10:00 Dose: Not Given Discontinued Medications Fentanyl (Sublimaze) Confirm Administered Dose 100 mcg .ROUTE .STK-MED ONE Stop: 04/21/19 15:13 Sodium Chloride (Normal Saline) 1,000 mls @ 500 mls/hr IV ASDIRECTED [facility] Last Admin: 04/20/19 16:48 Dose: 500 mls/hr Cefazolin Sodium/Dextrose 2 gm (/ Premix) 50 mls @ 100 mls/hr IV ONETIME ONE Stop: 04/21/19 15:59 Midazolam HCl (Versed 1 Mg/Ml) Confirm Administered Dose 2 mg .ROUTE .STK-MED ONE Stop: 04/21/19 15:13 Propofol (Diprivan 20 Ml) Confirm Administered Dose 200 mg .ROUTE .STK-MED ONE Stop: 04/21/19 15:13 - Exam Quality Assessment: No: Supplemental Oxygen General: Alert, Cooperative, No Acute Distress. No: Oriented Lungs: Clear to Auscultation, Normal Respiratory Effort Cardiovascular: Regular Rate, Regular Rhythm, Murmurs GI/Abdominal Exam: Soft, No Distention Extremities: No Pedal Edema, Other (Right leg shortened compared to the left). No: Increased Warmth Psy/Mental Status: Alert. No: Agitated Sepsis Event Note - Evaluation Sepsis Screening Result: No Definite Risk - Focused Exam Vital Signs: Vital Signs Temp Pulse Resp BP Pulse Ox 04/21/19 14:31 37.6 C 67 16 114/40 L 95 04/21/19 11:00 37.2 C 71 16 111/47 L 92 L 04/21/19 07:00 37.2 C 64 16 110/43 L 94 L Date Exam was Performed: 04/21/19 Time Exam was Performed: 16:12 - Problem List & Annotations (1) Closed right hip fracture SNOMED Code(s): 450788564 Code(s): S72.001A - FRACTURE OF UNSP PART OF NECK OF RIGHT FEMUR, INIT Status: Acute Current Visit: Yes Qualifiers: Encounter type: initial encounter Qualified Code(s): S72.001A - Fracture of unspecified part of neck of right femur, initial encounter for closed fracture Annotation/Comment:: Displaced femoral neck (2) DM II (diabetes mellitus, type II), controlled SNOMED Code(s): 07546347, 512528567 Code(s): E11.9 - TYPE 2 DIABETES MELLITUS WITHOUT COMPLICATIONS Status: Chronic Current Visit: Yes Qualifiers: Diabetes mellitus retirement insulin use: without rn long term care use Diabetes mellitus complication status: without complication Qualified Code(s): E11.9 - Type 2 diabetes mellitus without complications (3) Hypothyroidism SNOMED Code(s): 50870027 Code(s): E03.9 - HYPOTHYROIDISM, UNSPECIFIED Status: Chronic Current Visit: Yes Qualifiers: Hypothyroidism type: acquired Qualified Code(s): E03.9 - Hypothyroidism, unspecified - Problem List Review Problem List Initiated/Reviewed/Updated: Yes - My Orders Last 24 Hours: My Active Orders 04/20/19 17:51 Resuscitation Status Routine 04/20/19 18:14 Patient Status [ADT] Routine Antiembolic Devices [RC] .Routine Bedrest Bedside Commode [RC] ASDIRECTED Communication Order [RC] PRN Communication Order [RC] PRN Diabetes Education [RC] Click to Edit Intake and Output [RC] QSHIFT Notify Provider Consults [RC] ASDIRECTED Notify Provider Vital Signs [RC] ASDIRECTED Notify Provider [RC] .PRN Oxygen Therapy [RC] .PRN RT Aerosol Therapy [RC] ASDIRECTED VTE/DVT Education [RC] Per Unit Routine Vital Signs [RC] Q4H Consult to Physician [CONS] Routine Albuterol [Proventil Neb Soln] 2.5 mg NEB Q4H PRN Docusate Sodium/Sennosides [Senna Plus] 1 tab PO BID PRN HYDROmorphone [Dilaudid] 0.5 mg IVPUSH Q2H PRN LORazepam [Ativan] 0.5 mg IVPUSH Q4H PRN Magnesium Hydroxide [Milk of Magnesia] 30 ml PO Q12H PRN Melatonin 9 mg PO BEDTIME PRN Ondansetron [Zofran ODT] 4 mg PO Q6H PRN Ondansetron [Zofran] 4 mg IV Q6H PRN oxyCODONE 5 - 10 mg PO Q4H PRN Sequential Compression Device [OM.PC] Routine 04/20/19 20:00 Insulin Lispro [HumaLOG] See Protocol SUBCUT QIDACANDBED 04/20/19 21:00 Acetaminophen [Tylenol Extra Strength] 1,000 mg PO TID atorvaSTATin [Lipitor] 40 mg PO BEDTIME 04/20/19 22:00 Sodium Chloride 0.9% [Normal Saline] 1,000 ml IV ASDIRECTED 04/20/19 Dinner Nothing per Oral After Midnight Diet [DIET] 04/21/19 07:30 Levothyroxine 75 mcg PO ACBREAKFAST 04/21/19 08:41 PATIENT RETYPE [BBK] Routine RED BLOOD CELLS LP [BBK] Routine TYPE AND SCREEN [BBK] Routine 04/21/19 09:00 Aspirin [Halfprin] 81 mg PO DAILY Oxybutynin 5 mg PO BID Sertraline [Zoloft] 25 mg PO DAILY 04/21/19 11:42 IS (RT) [RT Incentive Spirometry] [RC] Q1HWA 04/21/19 16:30 GLUCOSE POC LAB TO COLLECT [POC] QIDACANDBED 04/21/19 21:00 GLUCOSE POC LAB TO COLLECT [POC] QIDACANDBED 04/21/19 Breakfast NPO [Nothing Per Oral Diet] [DIET] 04/22/19 05:00 BASIC METABOLIC PANEL,BMP [CHEM] Timed CBC W/O DIFF,HEMOGRAM [HEME] Timed (1) 04/22/19 07:30 GLUCOSE POC LAB TO COLLECT [POC] QIDACANDBED 04/22/19 11:30 GLUCOSE POC LAB TO COLLECT [POC] QIDACANDBED 04/22/19 16:30 GLUCOSE POC LAB TO COLLECT [POC] QIDACANDBED 04/22/19 21:00 GLUCOSE POC LAB TO COLLECT [POC] QIDACANDBED 04/23/19 07:30 GLUCOSE POC LAB TO COLLECT [POC] QIDACANDBED 04/23/19 11:30 GLUCOSE POC LAB TO COLLECT [POC] QIDACANDBED 04/23/19 16:30 GLUCOSE POC LAB TO COLLECT [POC] QIDACANDBED 04/23/19 21:00 GLUCOSE POC LAB TO COLLECT [POC] QIDACANDBED 04/24/19 07:30 GLUCOSE POC LAB TO COLLECT [POC] QIDACANDBED 04/24/19 11:30 GLUCOSE POC LAB TO COLLECT [POC] QIDACANDBED 04/24/19 16:30 GLUCOSE POC LAB TO COLLECT [POC] QIDACANDBED 04/24/19 21:00 GLUCOSE POC LAB TO COLLECT [POC] QIDACANDBED 04/25/19 07:30 GLUCOSE POC LAB TO COLLECT [POC] QIDACANDBED 04/25/19 11:30 GLUCOSE POC LAB TO COLLECT [POC] QIDACANDBED 04/25/19 16:30 GLUCOSE POC LAB TO COLLECT [POC] QIDACANDBED 04/25/19 21:00 GLUCOSE POC LAB TO COLLECT [POC] QIDACANDBED 04/26/19 07:30 GLUCOSE POC LAB TO COLLECT [POC] QIDACANDBED - Plan Plan:: ASSESSMENT AND PLAN - Closed, displaced fracture of the right femoral neck-secondary to fall at home. Surgical intervention is indicated and planned for later in the day. Pain control acceptable at this time. Until after surgery -Pain control -Nothing by mouth -Surgical intervention planned with Dr Carlitos Kiser today -Start physical therapy tomorrow Type 2 diabetes mellitus, controlled-she is n.p.o. and will be in the immediate postop period. -Hold pioglitazone -Low-dose sliding scale insulin with Accu-Cheks Essential hypertension-blood pressure on the low side of normal this morning so I will continue to hold this until her pressure rebounds postoperatively. -Hold lisinopril Hypothyroidism-she does note an increase in tremors recently but TSH was normal. -Continue supplementation Maintenance issues - - DVT prophylaxis -mechanical - GI prophylaxis -not indicated - Nutrition -consistent carbohydrates tonight, nothing by mouth after midnight - Tenorio catheter -placed in the emergency room, this will remain in place for strict intake and output monitoring in the postoperative period Disposition -I would anticipate discharge to a senior living facility for rehab after the hospital stay Bridger Bass M.D.
[2019-04-21] MEDS ORDERED: Povidone-Iodine 10% Soln 118.25 ML Bottle ONE (17:48)
[2019-04-21] MEDS ORDERED: Acetaminophen 325 MG Tab PO PRN (18:26)
[2019-04-21] MEDS ORDERED: traMADol 50 MG Tab PO PRN (18:28)
[2019-04-21] MEDS ORDERED: Acetaminophen/HYDROcodone 325-5 MG Tab PO PRN (18:29)
[2019-04-21] MEDS ORDERED: oxyCODONE 5 MG Tab PO PRN (18:32)
--- NOTE | 2019-04-21 18:46 | CRLCR ---
Indication: Postop diana arthroplasty. Technique: An AP view of the pelvis was obtained. Comparison: None Findings: Bilateral hip arthroplasties are identified. The femoral stems are not included. Air is identified within the soft tissues on the right. Impression: Postoperative changes of bilateral hip arthroplasty. Dictated by Cherelle Weaver MD @ Apr 21 2019 6:45PM Signed by Dr. Cherelle Weaver @ Apr 21 2019 6:46PM
[2019-04-21] MEDS: Nozin Nasal Sanitizer NASBOTH SCH (20:59)
[2019-04-21] MEDS: atorvaSTATin 20 MG Tab PO SCH (20:59)
[2019-04-21] MEDS: Enoxaparin 30 MG/0.3 ML Syringe SUBCUT SCH (22:17)
[2019-04-22] MEDS: Insulin Lispro 100 Unit/ML 3 ML KwikPen SUBCUT SCH ×4 (08:04→22:36)
[2019-04-22] MEDS: Levothyroxine 25 MCG Tab PO SCH (08:06)
[2019-04-22] MEDS: Oxybutynin 5 MG Tab PO SCH ×2 (08:08→20:52)
[2019-04-22] MEDS: Aspirin 81 MG Tab.EC PO SCH (08:08)
[2019-04-22] MEDS: Acetaminophen 500 MG Tab PO SCH ×3 (08:10→20:52)
[2019-04-22] MEDS: Sertraline 25 MG Tab PO SCH (08:11)
[2019-04-22] MEDS: Lisinopril 10 MG Tab PO SCH (08:27)
[2019-04-22] MEDS: Sodium Chloride 0.9% 1,000 ML IV SCH ×2 (08:43→19:09)
[2019-04-22] MEDS ORDERED: Non-Formulary Medication 1 Each (Pioglitazone [Actos] 30 MG) PO SCH (09:00)
[2019-04-22] MEDS: Nozin Nasal Sanitizer NASBOTH SCH ×2 (10:29→20:50)
--- NOTE | 2019-04-22 11:03 | PCM.PN ---
- General Info Date of Service: 04/22/19 Subjective Update: Patient had a successful and uncomplicated right hemiarthroplasty to treat her hip fracture yesterday. There were no acute events overnight but she did have mildly decreased urine output. Urine output has improved with IV fluids. She did have a low-grade fever last night. She is currently requiring some supplemental oxygen and atelectasis is suspected. No complaints of nausea or abdominal pain. There is mild confusion today but better than yesterday. Functional Status: Reports: Pain Controlled, Tolerating Diet - Review of Systems General: Reports: Fever Musculoskeletal: Reports: Joint Pain (right hip ) - Patient Data Vitals - Most Recent: Last Vital Signs Temp 37.3 C 04/22/19 08:00 Pulse 71 04/22/19 08:00 Resp 18 04/22/19 08:00 BP 128/46 L 04/22/19 08:27 Pulse Ox 100 04/22/19 08:00 Weight - Most Recent: 63.503 kg I&O - Last 24 Hours: Intake & Output 04/21/19 04/22/19 04/22/19 22:59 06:59 14:59 Intake Total 1651 1195 540 Output Total 350 150 50 Balance 1301 1045 490 Lab Results Last 24 Hours: Laboratory Results - last 24 hr 04/22/19 04/22/19 Range/Units 03:40 03:40 WBC 6.5 (4.5-11.0) K/uL RBC 3.05 L (3.30-5.50) M/uL Hgb 9.6 L (12.0-15.0) g/dL Hct 30.8 L (36.0-48.0) % MCV 101 H (80-98) fL MCH 32 H (27-31) pg MCHC 31 L (32-36) % Plt Count 180 (150-400) K/uL Sodium 140 (140-148) mmol/L Potassium 3.5 L (3.6-5.2) mmol/L Chloride 105 (100-108) mmol/L Carbon Dioxide 24 (21-32) mmol/L Anion Gap 14.5 H (5.0-14.0) mmol/L BUN 19 H (7-18) mg/dL Creatinine 0.8 (0.6-1.0) mg/dL Est Cr Clr Drug Dosing 51.23 mL/min Estimated GFR (MDRD) > 60 (>60) Glucose 103 (74-106) mg/dL Calcium 7.8 L (8.5-10.1) mg/dL Med Orders - Current: Current Medications Acetaminophen (Tylenol Extra Strength) 1,000 mg PO TID [facility] Last Admin: 04/22/19 08:10 Dose: 1,000 mg Hydrocodone Bitart/Acetaminophen ([place] 325-5 Mg) 1 tab PO Q4H PRN PRN Reason: Pain (moderate 4-6) Albuterol (Proventil Neb Soln) 2.5 mg NEB Q4H PRN PRN Reason: Shortness Of Breath/wheezing Aspirin (Halfprin) 81 mg PO DAILY [facility] Last Admin: 04/22/19 08:08 Dose: 81 mg Atorvastatin Calcium (Lipitor) 40 mg PO BEDTIME [facility] Last Admin: 04/21/19 20:59 Dose: 40 mg Bandage/Support Products ( Nasal [place]alone [place]) 1 applic NASBOTH BID [facility] Stop: 04/28/19 21:01 Last Admin: 04/22/19 10:29 Dose: 1 applic Enoxaparin Sodium (Lovenox) 30 mg SUBCUT Q24H [facility] Last Admin: 04/21/19 22:17 Dose: 30 mg Hydromorphone HCl (Dilaudid) 0.5 mg IVPUSH Q2H PRN PRN Reason: Pain (severe 7-10) Last Admin: 04/21/19 10:04 Dose: 0.5 mg Sodium Chloride (Normal Saline) 1,000 mls @ 100 mls/hr IV ASDIRECTED [facility] Last Admin: 04/22/19 08:43 Dose: 100 mls/hr Insulin Human Lispro (Humalog) 0 unit SUBCUT QIDACANDBED [facility]; Protocol Last Admin: 04/22/19 08:04 Dose: Not Given Levothyroxine Sodium (Levothyroxine) 75 mcg PO ACBREAKFAST [facility] Last Admin: 04/22/19 08:06 Dose: 75 mcg Lisinopril (Prinivil) 10 mg PO DAILY [facility] Last Admin: 04/22/19 08:27 Dose: 10 mg Lorazepam (Ativan) 0.5 mg IVPUSH Q4H PRN PRN Reason: Nausea/Vomiting Magnesium Hydroxide (Milk Of Magnesia) 30 ml PO Q12H PRN PRN Reason: Constipation Melatonin (Melatonin) 9 mg PO BEDTIME PRN PRN Reason: Sleep Last Admin: 04/20/19 20:43 Dose: 9 mg Non-Formulary Medication (Pioglitazone [Actos]) 30 mg PO DAILY [facility] Ondansetron HCl (Zofran Odt) 4 mg PO Q6H PRN PRN Reason: Nausea able to take PO Ondansetron HCl (Zofran) 4 mg IV Q6H PRN PRN Reason: Nausea/Vomiting Oxybutynin Chloride (Oxybutynin) 5 mg PO BID [facility] Last Admin: 04/22/19 08:08 Dose: 5 mg Oxycodone HCl (Oxycodone) 5 mg PO Q4H PRN PRN Reason: Pain (severe 7-10) Potassium Chloride (Klor-Con M20) 40 meq PO ONETIME ONE Stop: 04/22/19 11:01 Senna/Docusate Sodium (Senna Plus) 1 tab PO BID [facility] Last Admin: 04/22/19 08:26 Dose: 1 tab Sertraline HCl (Zoloft) 25 mg PO DAILY [facility] Last Admin: 04/22/19 08:11 Dose: 25 mg Tramadol HCl (Ultram) 50 mg PO Q6H PRN PRN Reason: Pain (mild 1-3) Last Admin: 04/22/19 03:55 Dose: 50 mg Discontinued Medications Acetaminophen (Tylenol) 650 mg PO Q4H PRN PRN Reason: Fever Greater Than 101 Fentanyl (Sublimaze) Confirm Administered Dose 100 mcg .ROUTE .STK-MED ONE Stop: 04/21/19 15:13 Sodium Chloride (Normal Saline) 1,000 mls @ 500 mls/hr IV ASDIRECTED [facility] Last Admin: 04/20/19 16:48 Dose: 500 mls/hr Sodium Chloride (Normal Saline) 1,000 mls @ 75 mls/hr IV ASDIRECTED [facility] Last Infusion: 04/22/19 05:44 Dose: 100 mls/hr Cefazolin Sodium/Dextrose 2 gm (/ Premix) 50 mls @ 100 mls/hr IV ONETIME ONE Stop: 04/21/19 15:59 Last Admin: 04/21/19 16:41 Dose: 100 mls/hr Midazolam HCl (Versed 1 Mg/Ml) Confirm Administered Dose 2 mg .ROUTE .STK-MED ONE Stop: 04/21/19 15:13 Oxycodone HCl (Oxycodone) 5 - 10 mg PO Q4H PRN PRN Reason: Pain Last Admin: 04/21/19 00:37 Dose: 5 mg Povidone Iodine (Betadine 10% Soln) Confirm Administered Dose 1 ml .ROUTE .STK- MED ONE Stop: 04/21/19 17:49 Last Admin: 04/21/19 17:56 Dose: 15 ml Propofol (Diprivan 20 Ml) Confirm Administered Dose 200 mg .ROUTE .STK-MED ONE Stop: 04/21/19 15:13 Propofol (Diprivan 20 Ml) Confirm Administered Dose 200 mg .ROUTE .STK-MED ONE Stop: 04/21/19 17:49 Senna/Docusate Sodium (Senna Plus) 1 tab PO BID PRN PRN Reason: Constipation - Exam Quality Assessment: Supplemental Oxygen General: Alert, Cooperative, No Acute Distress Lungs: Clear to Auscultation, Normal Respiratory Effort Cardiovascular: Regular Rate, Regular Rhythm GI/Abdominal Exam: Soft, No Distention Extremities: No Pedal Edema. No: Increased Warmth Wound/Incisions: Dressing Dry and Intact Psy/Mental Status: Alert, Normal Affect Sepsis Event Note - Evaluation Sepsis Screening Result: No Definite Risk - Focused Exam Vital Signs: Vital Signs Temp Pulse Resp BP BP Pulse Ox 04/22/19 08:27 128/46 L 04/22/19 08:00 37.3 C 71 18 128/46 L 100 04/22/19 03:44 37.8 C 72 18 129/57 L 98 04/22/19 01:50 37.7 C 04/22/19 00:21 38.4 C H 69 16 109/30 L 93 L Date Exam was Performed: 04/22/19 Time Exam was Performed: 13:45 - Problem List & Annotations (1) Closed right hip fracture SNOMED Code(s): 817535059 Code(s): S72.001A - FRACTURE OF UNSP PART OF NECK OF RIGHT FEMUR, INIT Status: Acute Current Visit: Yes Qualifiers: Encounter type: initial encounter Qualified Code(s): S72.001A - Fracture of unspecified part of neck of right femur, initial encounter for closed fracture Annotation/Comment:: Displaced femoral neck (2) DM II (diabetes mellitus, type II), controlled SNOMED Code(s): 50553502, 418826491 Code(s): E11.9 - TYPE 2 DIABETES MELLITUS WITHOUT COMPLICATIONS Status: Chronic Current Visit: Yes Qualifiers: Diabetes mellitus nursing home insulin use: without intermediate accountant use Diabetes mellitus complication status: without complication Qualified Code(s): E11.9 - Type 2 diabetes mellitus without complications (3) Hypothyroidism SNOMED Code(s): 44044779 Code(s): E03.9 - HYPOTHYROIDISM, UNSPECIFIED Status: Chronic Current Visit: Yes Qualifiers: Hypothyroidism type: acquired Qualified Code(s): E03.9 - Hypothyroidism, unspecified - Problem List Review Problem List Initiated/Reviewed/Updated: Yes - My Orders Last 24 Hours: My Active Orders 04/21/19 11:42 IS (RT) [RT Incentive Spirometry] [RC] Q1HWA 04/22/19 11:00 Potassium Chloride [Klor-Con M20] 40 meq PO ONETIME ONE 04/22/19 11:01 Up With Assistance [RC] ASDIRECTED 04/22/19 11:30 GLUCOSE POC LAB TO COLLECT [POC] QIDACANDBED 04/22/19 16:30 GLUCOSE POC LAB TO COLLECT [POC] QIDACANDBED 04/22/19 21:00 GLUCOSE POC LAB TO COLLECT [POC] QIDACANDBED 04/22/19 Lunch Consistent Carbohydrate Diet [DIET] 04/23/19 05:00 HGB [HEMOGLOBIN] [HEME] Timed POTASSIUM,K [CHEM] Timed 04/23/19 07:30 GLUCOSE POC LAB TO COLLECT [POC] QIDACANDBED 04/23/19 11:30 GLUCOSE POC LAB TO COLLECT [POC] QIDACANDBED 04/23/19 16:30 GLUCOSE POC LAB TO COLLECT [POC] QIDACANDBED 04/23/19 21:00 GLUCOSE POC LAB TO COLLECT [POC] QIDACANDBED 04/24/19 07:30 GLUCOSE POC LAB TO COLLECT [POC] QIDACANDBED 04/24/19 11:30 GLUCOSE POC LAB TO COLLECT [POC] QIDACANDBED 04/24/19 16:30 GLUCOSE POC LAB TO COLLECT [POC] QIDACANDBED 04/24/19 21:00 GLUCOSE POC LAB TO COLLECT [POC] QIDACANDBED 04/25/19 07:30 GLUCOSE POC LAB TO COLLECT [POC] QIDACANDBED 04/25/19 11:30 GLUCOSE POC LAB TO COLLECT [POC] QIDACANDBED 04/25/19 16:30 GLUCOSE POC LAB TO COLLECT [POC] QIDACANDBED 04/25/19 21:00 GLUCOSE POC LAB TO COLLECT [POC] QIDACANDBED 04/26/19 07:30 GLUCOSE POC LAB TO COLLECT [POC] QIDACANDBED - Plan Plan:: ASSESSMENT AND PLAN - Closed, displaced fracture of the right femoral neck-secondary to fall at home. Urine output a little on the low side but improving. Pain control acceptable. -Pain control -Surgical follow-up with Dr Carlitos Kiser -Start physical therapy Type 2 diabetes mellitus, controlled-blood sugars have been acceptable. -Restart pioglitazone -Low-dose sliding scale insulin with Accu-Cheks Essential hypertension-blood pressure still on the low side of normal. -Hold lisinopril Hypothyroidism-she does note an increase in tremors recently but TSH was normal. -Continue supplementation Maintenance issues - - DVT prophylaxis -enoxaparin x1 month - GI prophylaxis -not indicated - Nutrition -consistent carbohydrates - Tenorio catheter -placed in the emergency room, this will be removed today Disposition -I would anticipate discharge to a [facility] facility for rehab after the hospital stay Bridger Bass M.D.
[2019-04-22] MEDS ORDERED: Potassium Chloride 20 MEQ Tab.ER PO ONE (11:30)
[2019-04-22] MEDS: atorvaSTATin 20 MG Tab PO SCH (20:52)
[2019-04-22] MEDS: Enoxaparin 30 MG/0.3 ML Syringe SUBCUT SCH ×2 (20:53→21:58)
[2019-04-23] MEDS: Sodium Chloride 0.9% 1,000 ML IV SCH (04:59)
[2019-04-23] MEDS: Insulin Lispro 100 Unit/ML 3 ML KwikPen SUBCUT SCH ×4 (08:07→21:24)
[2019-04-23] MEDS: Aspirin 81 MG Tab.EC PO SCH (08:09)
[2019-04-23] MEDS: Oxybutynin 5 MG Tab PO SCH ×2 (08:09→20:42)
[2019-04-23] MEDS: Levothyroxine 25 MCG Tab PO SCH (08:09)
[2019-04-23] MEDS: Nozin Nasal Sanitizer NASBOTH SCH ×2 (08:09→20:42)
[2019-04-23] MEDS: Lisinopril 10 MG Tab PO SCH (08:10)
[2019-04-23] MEDS: Acetaminophen 500 MG Tab PO SCH ×3 (08:10→20:43)
[2019-04-23] MEDS: Sertraline 25 MG Tab PO SCH (08:11)
--- NOTE | 2019-04-23 11:01 | PCM.PN ---
- General Info Date of Service: 04/23/19 Subjective Update: No acute events overnight. Pain has been fairly well controlled. Patient is still a little bit confused today but better than yesterday. Urine output has been marginal but acceptable. Blood pressure has been in the normal range. No complaints of shortness of breath or nausea. She did have a bowel movement today. Hemoglobin down slightly from yesterday but no evidence for bleeding. Functional Status: Reports: Pain Controlled, Tolerating Diet - Review of Systems General: Denies: Fever Neurological: Reports: Confusion - Patient Data Vitals - Most Recent: Last Vital Signs Temp 37.8 C 04/23/19 07:00 Pulse 82 04/23/19 07:00 Resp 18 04/23/19 07:00 BP 139/48 L 04/23/19 08:10 Pulse Ox 93 L 04/23/19 07:00 Weight - Most Recent: 63.503 kg I&O - Last 24 Hours: Intake & Output 04/22/19 04/23/19 04/23/19 22:59 06:59 14:59 Intake Total 2773 210 Output Total 200 250 50 Balance 2573 -250 160 Lab Results Last 24 Hours: Laboratory Results - last 24 hr 04/23/19 04/23/19 Range/Units 03:56 03:56 Hgb 8.3 L (12.0-15.0) g/dL Potassium 3.3 L (3.6-5.2) mmol/L Med Orders - Current: Current Medications Acetaminophen (Tylenol Extra Strength) 1,000 mg PO TID [facility] Last Admin: 04/23/19 08:10 Dose: 1,000 mg Albuterol (Proventil Neb Soln) 2.5 mg NEB Q4H PRN PRN Reason: Shortness Of Breath/wheezing Aspirin (Halfprin) 81 mg PO DAILY [facility] Last Admin: 04/23/19 08:09 Dose: 81 mg Atorvastatin Calcium (Lipitor) 40 mg PO BEDTIME [facility] Last Admin: 04/22/19 20:52 Dose: 40 mg Bandage/Support Products ( Nasal [place]) 1 applic NASBOTH BID [facility] Stop: 04/28/19 21:01 Last Admin: 04/23/19 08:09 Dose: 1 applic Enoxaparin Sodium (Lovenox) 30 mg SUBCUT Q24H [facility] Last Admin: 04/22/19 21:58 Dose: Not Given Insulin Human Lispro (Humalog) 0 unit SUBCUT QIDACANDBED [facility]; Protocol Last Admin: 04/23/19 08:07 Dose: Not Given Levothyroxine Sodium (Levothyroxine) 75 mcg PO ACBREAKFAST [facility] Last Admin: 04/23/19 08:09 Dose: 75 mcg Lisinopril (Prinivil) 10 mg PO DAILY [facility] Last Admin: 04/23/19 08:10 Dose: 10 mg Lorazepam (Ativan) 0.5 mg IVPUSH Q4H PRN PRN Reason: Nausea/Vomiting Magnesium Hydroxide (Milk Of Magnesia) 30 ml PO Q12H PRN PRN Reason: Constipation Melatonin (Melatonin) 9 mg PO BEDTIME PRN PRN Reason: Sleep Last Admin: 04/20/19 20:43 Dose: 9 mg Non-Formulary Medication (Pioglitazone [Actos]) 30 mg PO DAILY [facility] Ondansetron HCl (Zofran Odt) 4 mg PO Q6H PRN PRN Reason: Nausea able to take PO Ondansetron HCl (Zofran) 4 mg IV Q6H PRN PRN Reason: Nausea/Vomiting Oxybutynin Chloride (Oxybutynin) 5 mg PO BID [facility] Last Admin: 04/23/19 08:09 Dose: 5 mg Potassium Chloride (Klor-Con M20) 40 meq PO BID [facility] Senna/Docusate Sodium (Senna Plus) 1 tab PO BID [facility] Last Admin: 04/23/19 08:10 Dose: 1 tab Sertraline HCl (Zoloft) 25 mg PO DAILY [facility] Last Admin: 04/23/19 08:11 Dose: 25 mg Tramadol HCl (Ultram) 50 mg PO Q6H PRN PRN Reason: Pain (mild 1-3) Last Admin: 04/22/19 03:55 Dose: 50 mg Discontinued Medications Acetaminophen (Tylenol) 650 mg PO Q4H PRN PRN Reason: Fever Greater Than 101 Hydrocodone Bitart/Acetaminophen ([place] 325-5 Mg) 1 tab PO Q4H PRN PRN Reason: Pain (moderate 4-6) Fentanyl (Sublimaze) Confirm Administered Dose 100 mcg .ROUTE .STK-MED ONE Stop: 04/21/19 15:13 Hydromorphone HCl (Dilaudid) 0.5 mg IVPUSH Q2H PRN PRN Reason: Pain (severe 7-10) Last Admin: 04/21/19 10:04 Dose: 0.5 mg Sodium Chloride (Normal Saline) 1,000 mls @ 500 mls/hr IV ASDIRECTED [facility] Last Admin: 04/20/19 16:48 Dose: 500 mls/hr Sodium Chloride (Normal Saline) 1,000 mls @ 75 mls/hr IV ASDIRECTED [facility] Last Infusion: 04/22/19 05:44 Dose: 100 mls/hr Cefazolin Sodium/Dextrose 2 gm (/ Premix) 50 mls @ 100 mls/hr IV ONETIME ONE Stop: 04/21/19 15:59 Last Admin: 04/21/19 16:41 Dose: 100 mls/hr Sodium Chloride (Normal Saline) 1,000 mls @ 100 mls/hr IV ASDIRECTED [facility] Last Admin: 04/23/19 04:59 Dose: 100 mls/hr Midazolam HCl (Versed 1 Mg/Ml) Confirm Administered Dose 2 mg .ROUTE .STK-MED ONE Stop: 04/21/19 15:13 Oxycodone HCl (Oxycodone) 5 - 10 mg PO Q4H PRN PRN Reason: Pain Last Admin: 04/21/19 00:37 Dose: 5 mg Oxycodone HCl (Oxycodone) 5 mg PO Q4H PRN PRN Reason: Pain (severe 7-10) Potassium Chloride (Klor-Con M20) 40 meq PO ONETIME ONE Stop: 04/22/19 11:31 Last Admin: 04/22/19 12:04 Dose: 40 meq Povidone Iodine (Betadine 10% Soln) Confirm Administered Dose 1 ml .ROUTE .STK- MED ONE Stop: 04/21/19 17:49 Last Admin: 04/21/19 17:56 Dose: 15 ml Propofol (Diprivan 20 Ml) Confirm Administered Dose 200 mg .ROUTE .STK-MED ONE Stop: 04/21/19 15:13 Propofol (Diprivan 20 Ml) Confirm Administered Dose 200 mg .ROUTE .STK-MED ONE Stop: 04/21/19 17:49 Senna/Docusate Sodium (Senna Plus) 1 tab PO BID PRN PRN Reason: Constipation - Exam Quality Assessment: No: Supplemental Oxygen General: Alert, Cooperative, No Acute Distress Lungs: Clear to Auscultation, Normal Respiratory Effort Cardiovascular: Regular Rate, Regular Rhythm GI/Abdominal Exam: Soft, No Distention Extremities: No Pedal Edema Wound/Incisions: Dressing Dry and Intact Psy/Mental Status: Alert, Normal Affect Sepsis Event Note - Evaluation Sepsis Screening Result: No Definite Risk - Focused Exam Vital Signs: Vital Signs Temp Pulse Resp BP BP Pulse Ox 04/23/19 08:10 139/48 L 04/23/19 07:00 37.8 C 82 18 139/48 L 93 L 04/23/19 02:00 37.7 C 69 16 118/37 L 92 L Date Exam was Performed: 04/23/19 Time Exam was Performed: 12:51 - Problem List & Annotations (1) Closed right hip fracture SNOMED Code(s): 042867902 Code(s): S72.001A - FRACTURE OF UNSP PART OF NECK OF RIGHT FEMUR, INIT Status: Acute Current Visit: Yes Qualifiers: Encounter type: initial encounter Qualified Code(s): S72.001A - Fracture of unspecified part of neck of right femur, initial encounter for closed fracture Annotation/Comment:: Displaced femoral neck (2) DM II (diabetes mellitus, type II), controlled SNOMED Code(s): 97408692, 904438083 Code(s): E11.9 - TYPE 2 DIABETES MELLITUS WITHOUT COMPLICATIONS Status: Chronic Current Visit: Yes Qualifiers: Diabetes mellitus assistant terminal manager insulin use: without half-way use Diabetes mellitus complication status: without complication Qualified Code(s): E11.9 - Type 2 diabetes mellitus without complications (3) Hypothyroidism SNOMED Code(s): 44717958 Code(s): E03.9 - HYPOTHYROIDISM, UNSPECIFIED Status: Chronic Current Visit: Yes Qualifiers: Hypothyroidism type: acquired Qualified Code(s): E03.9 - Hypothyroidism, unspecified (4) Anemia due to blood loss, acute SNOMED Code(s): 701294121 Code(s): D62 - ACUTE POSTHEMORRHAGIC ANEMIA Status: Acute Current Visit: Yes - Problem List Review Problem List Initiated/Reviewed/Updated: Yes - My Orders Last 24 Hours: My Active Orders 04/22/19 11:01 Up With Assistance [RC] ASDIRECTED 04/22/19 Lunch Consistent Carbohydrate Diet [DIET] 04/23/19 08:42 Convert IV to Saline Lock [OM.PC] Routine 04/23/19 09:00 Potassium Chloride [Klor-Con M20] 40 meq PO BID 04/23/19 11:30 GLUCOSE POC LAB TO COLLECT [POC] QIDACANDBED 04/23/19 16:30 GLUCOSE POC LAB TO COLLECT [POC] QIDACANDBED 04/23/19 21:00 GLUCOSE POC LAB TO COLLECT [POC] QIDACANDBED 04/24/19 05:00 HGB [HEMOGLOBIN] [HEME] Timed POTASSIUM,K [CHEM] Timed 04/24/19 07:30 GLUCOSE POC LAB TO COLLECT [POC] QIDACANDBED 04/24/19 11:30 GLUCOSE POC LAB TO COLLECT [POC] QIDACANDBED 04/24/19 16:30 GLUCOSE POC LAB TO COLLECT [POC] QIDACANDBED 04/24/19 21:00 GLUCOSE POC LAB TO COLLECT [POC] QIDACANDBED 04/25/19 07:30 GLUCOSE POC LAB TO COLLECT [POC] QIDACANDBED 04/25/19 11:30 GLUCOSE POC LAB TO COLLECT [POC] QIDACANDBED 04/25/19 16:30 GLUCOSE POC LAB TO COLLECT [POC] QIDACANDBED 04/25/19 21:00 GLUCOSE POC LAB TO COLLECT [POC] QIDACANDBED 04/26/19 07:30 GLUCOSE POC LAB TO COLLECT [POC] QIDACANDBED - Plan Plan:: ASSESSMENT AND PLAN - Closed, displaced fracture of the right femoral neck-secondary to fall at home. Urine output still a little on the low side but tolerable. Pain control remains acceptable. Working with physical therapy -Pain control -Surgical follow-up with Dr Carlitos Kiser -Continue physical therapy Anemia due to blood loss-hemoglobin has dropped to just above 8. No evidence for bleeding and surgical site appears to be doing well at this time. -Iron supplement after discharge Type 2 diabetes mellitus, controlled-blood sugars have been acceptable. -Restart pioglitazone -Low-dose sliding scale insulin with Accu-Cheks Essential hypertension-blood pressure still on the low side of normal. -Restart lisinopril Hypothyroidism-she does note an increase in tremors recently but TSH was normal. -Continue supplementation Maintenance issues - - DVT prophylaxis -enoxaparin x1 month - GI prophylaxis -not indicated - Nutrition -consistent carbohydrates - Tenorio catheter -removed 04/22 Disposition -I would anticipate discharge to a senior care facility for rehab after the hospital stay. Prior to admission she lived at an assisted living facility with her and did receive some services. There are no therapy services available at her assisted living or anywhere nearby. She would benefit from admission to a senior care facility for her rehabilitation. Bridger Bass M.D.
[2019-04-23] MEDS: Potassium Chloride 20 MEQ Tab.ER PO SCH ×2 (11:04→20:43)
--- NOTE | 2019-04-23 15:11 | PCM.SURGPN ---
- General Info Date of Service: 04/22/19 Date of Surgery/Procedure: 04/21/19 POD#: 1 Post-Op Diagnosis: Right femoral neck fracture Functional Status: Reports: Pain Controlled, Tolerating Diet - Review of Systems General: Reports: No Symptoms HEENT: Reports: No Symptoms Pulmonary: Reports: No Symptoms Cardiovascular: Reports: No Symptoms Gastrointestinal: Reports: No Symptoms Musculoskeletal: Reports: Leg Pain Skin: Reports: No Symptoms Neurological: Reports: Confusion - Patient Data Vitals - Most Recent: Last Vital Signs Temp 36.8 C 04/23/19 14:36 Pulse 73 04/23/19 14:36 Resp 18 04/23/19 14:36 BP 113/43 L 04/23/19 14:36 Pulse Ox 100 04/23/19 14:36 Weight - Most Recent: 63.503 kg I&O - Last 24 Hours: Intake & Output 04/23/19 04/23/19 04/23/19 06:59 14:59 22:59 Intake Total 1854 Output Total 250 600 Balance -250 1254 Lab Results Last 24 Hrs: Laboratory Results - last 24 hr 04/23/19 04/23/19 Range/Units 03:56 03:56 Hgb 8.3 L (12.0-15.0) g/dL Potassium 3.3 L (3.6-5.2) mmol/L Med Orders - Current: Current Medications Acetaminophen (Tylenol Extra Strength) 1,000 mg PO TID [facility] Last Admin: 04/23/19 14:30 Dose: 1,000 mg Albuterol (Proventil Neb Soln) 2.5 mg NEB Q4H PRN PRN Reason: Shortness Of Breath/wheezing Aspirin (Halfprin) 81 mg PO DAILY [facility] Last Admin: 04/23/19 08:09 Dose: 81 mg Atorvastatin Calcium (Lipitor) 40 mg PO BEDTIME [facility] Last Admin: 04/22/19 20:52 Dose: 40 mg Bandage/Support Products ( Nasal Computer Processing Scheduler) 1 applic NASBOTH BID [facility] Stop: 04/28/19 21:01 Last Admin: 04/23/19 08:09 Dose: 1 applic Enoxaparin Sodium (Lovenox) 30 mg SUBCUT Q24H [facility] Last Admin: 04/22/19 21:58 Dose: Not Given Insulin Human Lispro (Humalog) 0 unit SUBCUT QIDACANDBED [facility]; Protocol Last Admin: 04/23/19 11:51 Dose: Not Given Levothyroxine Sodium (Levothyroxine) 75 mcg PO ACBREAKFAST [facility] Last Admin: 04/23/19 08:09 Dose: 75 mcg Lisinopril (Prinivil) 10 mg PO DAILY [facility] Last Admin: 04/23/19 08:10 Dose: 10 mg Lorazepam (Ativan) 0.5 mg IVPUSH Q4H PRN PRN Reason: Nausea/Vomiting Magnesium Hydroxide (Milk Of Magnesia) 30 ml PO Q12H PRN PRN Reason: Constipation Melatonin (Melatonin) 9 mg PO BEDTIME PRN PRN Reason: Sleep Last Admin: 04/20/19 20:43 Dose: 9 mg Non-Formulary Medication (Pioglitazone [Actos]) 30 mg PO DAILY [facility] Ondansetron HCl (Zofran Odt) 4 mg PO Q6H PRN PRN Reason: Nausea able to take PO Ondansetron HCl (Zofran) 4 mg IV Q6H PRN PRN Reason: Nausea/Vomiting Oxybutynin Chloride (Oxybutynin) 5 mg PO BID [facility] Last Admin: 04/23/19 08:09 Dose: 5 mg Potassium Chloride (Klor-Con M20) 40 meq PO BID [facility] Last Admin: 04/23/19 11:04 Dose: 40 meq Senna/Docusate Sodium (Senna Plus) 1 tab PO BID [facility] Last Admin: 04/23/19 08:10 Dose: 1 tab Sertraline HCl (Zoloft) 25 mg PO DAILY [facility] Last Admin: 04/23/19 08:11 Dose: 25 mg Tramadol HCl (Ultram) 50 mg PO Q6H PRN PRN Reason: Pain (mild 1-3) Last Admin: 04/22/19 03:55 Dose: 50 mg Discontinued Medications Acetaminophen (Tylenol) 650 mg PO Q4H PRN PRN Reason: Fever Greater Than 101 Hydrocodone Bitart/Acetaminophen ([place] 325-5 Mg) 1 tab PO Q4H PRN PRN Reason: Pain (moderate 4-6) Fentanyl (Sublimaze) Confirm Administered Dose 100 mcg .ROUTE .STK-MED ONE Stop: 04/21/19 15:13 Hydromorphone HCl (Dilaudid) 0.5 mg IVPUSH Q2H PRN PRN Reason: Pain (severe 7-10) Last Admin: 04/21/19 10:04 Dose: 0.5 mg Sodium Chloride (Normal Saline) 1,000 mls @ 500 mls/hr IV ASDIRECTED [facility] Last Admin: 04/20/19 16:48 Dose: 500 mls/hr Sodium Chloride (Normal Saline) 1,000 mls @ 75 mls/hr IV ASDIRECTED [facility] Last Infusion: 04/22/19 05:44 Dose: 100 mls/hr Cefazolin Sodium/Dextrose 2 gm (/ Premix) 50 mls @ 100 mls/hr IV ONETIME ONE Stop: 04/21/19 15:59 Last Admin: 04/21/19 16:41 Dose: 100 mls/hr Sodium Chloride (Normal Saline) 1,000 mls @ 100 mls/hr IV ASDIRECTED [facility] Last Admin: 04/23/19 04:59 Dose: 100 mls/hr Midazolam HCl (Versed 1 Mg/Ml) Confirm Administered Dose 2 mg .ROUTE .STK-MED ONE Stop: 04/21/19 15:13 Oxycodone HCl (Oxycodone) 5 - 10 mg PO Q4H PRN PRN Reason: Pain Last Admin: 04/21/19 00:37 Dose: 5 mg Oxycodone HCl (Oxycodone) 5 mg PO Q4H PRN PRN Reason: Pain (severe 7-10) Potassium Chloride (Klor-Con M20) 40 meq PO ONETIME ONE Stop: 04/22/19 11:31 Last Admin: 04/22/19 12:04 Dose: 40 meq Povidone Iodine (Betadine 10% Soln) Confirm Administered Dose 1 ml .ROUTE .STK- MED ONE Stop: 04/21/19 17:49 Last Admin: 04/21/19 17:56 Dose: 15 ml Propofol (Diprivan 20 Ml) Confirm Administered Dose 200 mg .ROUTE .STK-MED ONE Stop: 04/21/19 15:13 Propofol (Diprivan 20 Ml) Confirm Administered Dose 200 mg .ROUTE .STK-MED ONE Stop: 04/21/19 17:49 Senna/Docusate Sodium (Senna Plus) 1 tab PO BID PRN PRN Reason: Constipation - Exam Wound/Incisions: No Drainage General: Alert Extremities: Limited Range of Motion Skin: Warm, Dry Neurological: No New Focal Deficit Psy/Mental Status: Alert, Normal Affect, Normal Mood Sepsis Event Note - Evaluation Sepsis Screening Result: No Definite Risk - Focused Exam Vital Signs: Vital Signs Temp Pulse Resp BP BP Pulse Ox 04/23/19 14:36 36.8 C 73 18 113/43 L 100 04/23/19 11:00 37.5 C 78 18 133/40 L 96 04/23/19 08:10 139/48 L 04/23/19 07:00 37.8 C 82 18 139/48 L 93 L Date Exam was Performed: 04/23/19 Time Exam was Performed: 15:08 - Problem List & Annotations (1) Closed right hip fracture SNOMED Code(s): 297826705 Code(s): S72.001A - FRACTURE OF UNSP PART OF NECK OF RIGHT FEMUR, INIT Status: Acute Current Visit: Yes Annotation/Comment:: Displaced femoral neck Qualifiers: Encounter type: initial encounter Qualified Code(s): S72.001A - Fracture of unspecified part of neck of right femur, initial encounter for closed fracture - Problem List Review Problem List Initiated/Reviewed/Updated: Yes - My Orders Last 24 Hours: Active Orders 24 hr Category Date Time Status GLUCOSE POC LAB TO COLLECT [POC] QIDACANDBED Lab 04/23/19 16:30 Ordered GLUCOSE POC LAB TO COLLECT [POC] QIDACANDBED Lab 04/23/19 21:00 Ordered GLUCOSE POC LAB TO COLLECT [POC] QIDACANDBED Lab 04/24/19 07:30 Ordered GLUCOSE POC LAB TO COLLECT [POC] QIDACANDBED Lab 04/24/19 11:30 Ordered GLUCOSE POC LAB TO COLLECT [POC] QIDACANDBED Lab 04/24/19 16:30 Ordered GLUCOSE POC LAB TO COLLECT [POC] QIDACANDBED Lab 04/24/19 21:00 Ordered GLUCOSE POC LAB TO COLLECT [POC] QIDACANDBED Lab 04/25/19 07:30 Ordered GLUCOSE POC LAB TO COLLECT [POC] QIDACANDBED Lab 04/25/19 11:30 Ordered GLUCOSE POC LAB TO COLLECT [POC] QIDACANDBED Lab 04/25/19 16:30 Ordered GLUCOSE POC LAB TO COLLECT [POC] QIDACANDBED Lab 04/25/19 21:00 Ordered GLUCOSE POC LAB TO COLLECT [POC] QIDACANDBED Lab 04/26/19 07:30 Ordered HGB [HEMOGLOBIN] [HEME] Timed Lab 04/24/19 05:00 Ordered POTASSIUM,K [CHEM] Timed Lab 04/24/19 05:00 Ordered Potassium Chloride [Klor-Con M20] Med 04/23/19 09:00 Active 40 meq PO BID Convert IV to Saline Lock [OM.PC] Routine Oth 04/23/19 08:42 Ordered Medication Orders Acetaminophen (Tylenol Extra Strength) 1,000 mg PO TID [facility] Last Admin: 04/23/19 14:30 Dose: 1,000 mg Admin: 04/23/19 08:10 Dose: 1,000 mg Admin: 04/22/19 20:52 Dose: 1,000 mg Admin: 04/22/19 13:37 Dose: 1,000 mg Admin: 04/22/19 08:10 Dose: 1,000 mg Admin: 04/21/19 20:59 Dose: 1,000 mg Admin: 04/21/19 14:18 Dose: Admin: 04/21/19 09:59 Dose: Admin: 04/20/19 20:43 Dose: 1,000 mg Albuterol (Proventil Neb Soln) 2.5 mg NEB Q4H PRN PRN Reason: Shortness Of Breath/wheezing Aspirin (Halfprin) 81 mg PO DAILY [facility] Last Admin: 04/23/19 08:09 Dose: 81 mg Admin: 04/22/19 08:08 Dose: 81 mg Admin: 04/21/19 09:59 Dose: Atorvastatin Calcium (Lipitor) 40 mg PO BEDTIME [facility] Last Admin: 04/22/19 20:52 Dose: 40 mg Admin: 04/21/19 20:59 Dose: 40 mg Admin: 04/20/19 20:43 Dose: 40 mg Bandage/Support Products ( Nasal Computer Processing Scheduler) 1 applic NASBOTH BID [facility] Stop: 04/28/19 21:01 Last Admin: 04/23/19 08:09 Dose: 1 applic Admin: 04/22/19 20:50 Dose: 1 applic Admin: 04/22/19 10:29 Dose: 1 applic Admin: 04/21/19 20:59 Dose: Enoxaparin Sodium (Lovenox) 30 mg SUBCUT Q24H [facility] Last Admin: 04/22/19 21:58 Dose: Not Given Admin: 04/22/19 20:53 Dose: 30 mg Admin: 04/21/19 22:17 Dose: 30 mg Insulin Human Lispro (Humalog) 0 unit SUBCUT QIDACANDBED [facility]; Protocol Last Admin: 04/23/19 11:51 Dose: Not Given Admin: 04/23/19 08:07 Dose: Not Given Admin: 04/22/19 22:36 Dose: 1 unit Admin: 04/22/19 17:36 Dose: Not Given Admin: 04/22/19 11:50 Dose: Not Given Admin: 04/22/19 08:04 Dose: Not Given Admin: 04/21/19 21:00 Dose: Not Given Admin: 04/21/19 16:38 Dose: Not Given Admin: 04/21/19 11:49 Dose: Not Given Admin: 04/21/19 08:40 Dose: Not Given Admin: 04/20/19 20:53 Dose: 1 unit Levothyroxine Sodium (Levothyroxine) 75 mcg PO ACBREAKFAST [facility] Last Admin: 04/23/19 08:09 Dose: 75 mcg Admin: 04/22/19 08:06 Dose: 75 mcg Admin: 04/21/19 08:40 Dose: Lisinopril (Prinivil) 10 mg PO DAILY [facility] Last Admin: 04/23/19 08:10 Dose: 10 mg Admin: 04/22/19 08:27 Dose: 10 mg Lorazepam (Ativan) 0.5 mg IVPUSH Q4H PRN PRN Reason: Nausea/Vomiting Magnesium Hydroxide (Milk Of Magnesia) 30 ml PO Q12H PRN PRN Reason: Constipation Melatonin (Melatonin) 9 mg PO BEDTIME PRN PRN Reason: Sleep Last Admin: 04/20/19 20:43 Dose: 9 mg Non-Formulary Medication (Pioglitazone [Actos]) 30 mg PO DAILY [facility] Ondansetron HCl (Zofran Odt) 4 mg PO Q6H PRN PRN Reason: Nausea able to take PO Ondansetron HCl (Zofran) 4 mg IV Q6H PRN PRN Reason: Nausea/Vomiting Oxybutynin Chloride (Oxybutynin) 5 mg PO BID [facility] Last Admin: 04/23/19 08:09 Dose: 5 mg Admin: 04/22/19 20:52 Dose: 5 mg Admin: 04/22/19 08:08 Dose: 5 mg Admin: 04/21/19 20:59 Dose: 5 mg Admin: 04/21/19 09:59 Dose: Potassium Chloride (Klor-Con M20) 40 meq PO BID [facility] Last Admin: 04/23/19 11:04 Dose: 40 meq Senna/Docusate Sodium (Senna Plus) 1 tab PO BID [facility] Last Admin: 04/23/19 08:10 Dose: 1 tab Admin: 04/22/19 20:52 Dose: 1 tab Admin: 04/22/19 08:26 Dose: 1 tab Admin: 04/21/19 20:59 Dose: 1 tab Sertraline HCl (Zoloft) 25 mg PO DAILY [facility] Last Admin: 04/23/19 08:11 Dose: 25 mg Admin: 04/22/19 08:11 Dose: 25 mg Admin: 04/21/19 10:00 Dose: Tramadol HCl (Ultram) 50 mg PO Q6H PRN PRN Reason: Pain (mild 1-3) Last Admin: 04/22/19 03:55 Dose: 50 mg - Assessment Assessment (Free Text/Narrative):: Tolerated surgery without complication, mild confusion over night, better this AM. UP in chair and tolerating OK. - Plan Plan (Free Text/Narrative):: PT/OT for ambulation, recommend anticoagulation for 28 days post op, Rehab is recommended on discharge.
[2019-04-23] MEDS: atorvaSTATin 20 MG Tab PO SCH (20:42)
[2019-04-23] MEDS: Enoxaparin 30 MG/0.3 ML Syringe SUBCUT SCH (21:24)
[2019-04-24] MEDS: Insulin Lispro 100 Unit/ML 3 ML KwikPen SUBCUT SCH ×2 (07:46→12:34)
[2019-04-24] MEDS: Levothyroxine 25 MCG Tab PO SCH (07:52)
[2019-04-24] MEDS: Nozin Nasal Sanitizer NASBOTH SCH (09:08)
[2019-04-24] MEDS: Potassium Chloride 20 MEQ Tab.ER PO SCH (09:09)
[2019-04-24] MEDS: Aspirin 81 MG Tab.EC PO SCH (09:09)
[2019-04-24] MEDS: Lisinopril 10 MG Tab PO SCH (09:09)
[2019-04-24] MEDS: Oxybutynin 5 MG Tab PO SCH (09:09)
[2019-04-24] MEDS: Sertraline 25 MG Tab PO SCH (09:10)
[2019-04-24] MEDS: Acetaminophen 500 MG Tab PO SCH (09:10)
--- NOTE | 2019-04-24 10:28 | PCM.DCSUM1 ---
Discharge Summary - Hospital Course Diagnosis: Stroke: No - Discharge Data Discharge Date: 04/24/19 Discharge Disposition: DC/Tfer to SNF 03 Condition: Fair - Referral to Home Health Primary Care Physician: PCP None - Discharge Diagnosis/Problem(s) (1) Closed right hip fracture SNOMED Code(s): 969180448 ICD Code: S72.001A - FRACTURE OF UNSP PART OF NECK OF RIGHT FEMUR, INIT Status: Acute Current Visit: Yes Problem Details: Displaced femoral neck Qualifiers: Encounter type: initial encounter Qualified Code(s): S72.001A - Fracture of unspecified part of neck of right femur, initial encounter for closed fracture (2) Anemia due to blood loss, acute SNOMED Code(s): 550677264 ICD Code: D62 - ACUTE POSTHEMORRHAGIC ANEMIA Status: Acute Current Visit : Yes (3) DM II (diabetes mellitus, type II), controlled SNOMED Code(s): 57631848, 134920567 ICD Code: E11.9 - TYPE 2 DIABETES MELLITUS WITHOUT COMPLICATIONS Status: Chronic Current Visit: Yes Qualifiers: Diabetes mellitus mcc insulin use: without mcc use Diabetes mellitus complication status: without complication Qualified Code(s): E11.9 - Type 2 diabetes mellitus without complications (4) Hypothyroidism SNOMED Code(s): 65838897 ICD Code: E03.9 - HYPOTHYROIDISM, UNSPECIFIED Status: Chronic Current Visit: Yes Qualifiers: Hypothyroidism type: acquired Qualified Code(s): E03.9 - Hypothyroidism, unspecified - Patient Summary/Data Operative Procedure(s) Performed: Right hip hemiarthroplasty performed by Dr Carlitos Kiser on April 21 Consults: Consultations 04/20/19 18:14 Consult to Physician [CONS] Routine Consulting Provider: Carlitos Kiser Courtesy Call Completed to Consulting Physician: Yes Reason for Consult: right hip fx Person Notified: PICKUP DRIVER Date Notified: 04/20/19 Special Instructions: surgery tomorrow 04/2104/21/19 18:24 Consult to Case Management/Secret Code Expert [CONS] Routine Comment: Physician Instructions: Service(s) to be Consulted: Case Management Reason for Consult: Plan for Discharge PT Evaluation and Treatment [CONS] Routine Please Evaluate and Treat. PT Reason for Consult: Post op Ortho Surgery Special Instructions: Ambulation WBAT on right, posterior hip precautions This query below is only for informational purposes and is not editable. Admission Diagnosis/Problem: Fracture of hip 04/21/19 18:25 Consult to Occupational Therapy [OT Evaluation and Treatment] [CONS] Routine Please Evaluate and Treat. OT Reason for Consult: ADL's This query below is only for informational purposes and is not editable. Admission Diagnosis/Problem: Fracture of hip Hospital Course: Pinky presented with right hip pain after falling at home. X-rays in the emergency room suggested a right hip fracture which was displaced. She was admitted to the hospital for pain control overnight. The morning after admission she had a right hip hemiarthroplasty performed by Dr Carlitos Kiser. The operative procedure was uncomplicated. Overnight following admission she did have mild to moderate confusion. This was thought secondary to the pain medications. We have minimized narcotics in the postoperative setting and she has apparently returned to baseline at this point. She has been stable following surgery. She did have low urine output for the first 24 hours or so but it has improved since then. Her Ten[place] catheter has been successfully removed without any urinary retention. She has been working with physical therapy and is doing well. She is safe for outpatient management but would benefit from discharge to a detention facility for subacute rehab. She does not have adequate therapy available at her assisted living. She will be on enoxaparin for 27 more doses to complete 1 month of anticoagulation after her hip replacement surgery. I did also place her on an iron supplement to help build up her hemoglobin and iron levels as her postoperative course was complicated by anemia due to blood loss. She did not require blood transfusion. Also of note we held her Pioglitazone during the hospital stay. Her blood sugars have been acceptable even without the medication and I do not believe she needs to continue this medication after hospital discharge. - Patient Instructions Diet: Diabetic Diet Activity: As Tolerated Showering/Bathing: May Shower Wound/Incision Care: Keep Operative Site/Wound Site Clean and Dry Notify Provider of: Fever, Increased Pain, Nausea and/or Vomiting Other/Special Instructions: 1. You were in the hospital for surgical management of a hip fracture secondary to a fall at home. This fracture did require surgical repair. You had a successful right hemiarthroplasty. Your postoperative course has been complicated by anemia secondary to the blood loss. I recommend that you take an iron supplement for 1 month postoperatively. To help prevent blood clots in your leg you should also take enoxaparin once daily for 27 more doses. 2. Referral to physical and occupational therapy for strengthening in the setting of recent hip replacement. 3. Code status - FULL. 4. Enoxaparin 30 mg subcutaneous daily for 27 more doses - DVT prophylaxis after a hip replacement - Discharge Plan *PRESCRIPTION DRUG MONITORING PROGRAM REVIEWED*: Not Applicable *COPY OF PRESCRIPTION DRUG MONITORING REPORT IN PATIENT MARIO: Not Applicable Prescriptions/Med Rec: Acetaminophen [Tylenol Extra Strength] 1,000 mg PO TID #200 tablet Enoxaparin [Lovenox] 30 mg SUBCUT Q24H #27 syringe Ferrous Sulfate 325 mg PO BIDMEALS #60 tab traMADol [Ultram] 50 mg PO Q6H PRN #40 tablet PRN Reason: Pain Home Medications: Home Meds Aspirin [Halfprin] 81 mg PO DAILY 04/20/19 [History] Ergocalciferol (Vitamin D2) [Vitamin D2] 2,000 unit PO DAILY 04/20/19 [History] Levothyroxine 75 mcg PO ACBREAKFAST 04/20/19 [History] Lisinopril [Zestril] 10 mg PO DAILY 04/20/19 [History] Oxybutynin [Oxybutynin ER] 10 mg PO DAILY 04/20/19 [History] Sertraline [Zoloft] 25 mg PO DAILY 04/20/19 [History] atorvaSTATin [Lipitor] 40 mg PO BEDTIME 04/20/19 [History] Acetaminophen [Tylenol Extra Strength] 1,000 mg PO TID #200 tablet 04/24/19 [Rx] Enoxaparin [Lovenox] 30 mg SUBCUT Q24H #27 syringe 04/24/19 [Rx] Ferrous Sulfate 325 mg PO BIDMEALS #60 tab 04/24/19 [Rx] traMADol [Ultram] 50 mg PO Q6H PRN #40 tablet 04/24/19 [Rx] Oxygen Therapy Mode: Room Air Patient Handouts: Open Reduction and Internal Fixation for Hip Fracture, Care After Referrals: Carlitos Kiser MD [Physician] - 05/05/19 1:15 pm - Discharge Summary/Plan Comment DC Time >30 min.: Yes (40 - new [facility] discharge ) - Patient Data Vitals - Most Recent: Last Vital Signs Temp 37.1 C 04/24/19 07:29 Pulse 81 04/24/19 07:29 Resp 16 04/24/19 07:29 BP 126/52 L 04/24/19 09:09 Pulse Ox 98 04/24/19 07:29 Weight - Most Recent: 63.503 kg I&O - Last 24 hours: Intake & Output 04/23/19 04/24/19 04/24/19 22:59 06:59 14:59 Intake Total 240 200 Output Total 1150 750 Balance -910 -550 Lab Results - Last 24 hrs: Laboratory Results - last 24 hr 04/24/19 04/24/19 Range/Units 04:00 04:00 Hgb 7.9 L (12.0-15.0) g/dL Potassium 4.1 (3.6-5.2) mmol/L Med Orders - Current: Current Medications Acetaminophen (Tylenol Extra Strength) 1,000 mg PO TID [facility] Last Admin: 04/24/19 09:10 Dose: 1,000 mg Albuterol (Proventil Neb Soln) 2.5 mg NEB Q4H PRN PRN Reason: Shortness Of Breath/wheezing Aspirin (Halfprin) 81 mg PO DAILY [facility] Last Admin: 04/24/19 09:09 Dose: 81 mg Atorvastatin Calcium (Lipitor) 40 mg PO BEDTIME [facility] Last Admin: 04/23/19 20:42 Dose: 40 mg Bandage/Support Products ( Nasal Steam Clean Machine Operator) 1 applic NASBOTH BID [facility] Stop: 04/28/19 21:01 Last Admin: 04/24/19 09:08 Dose: 1 applic Enoxaparin Sodium (Lovenox) 30 mg SUBCUT Q24H [facility] Last Admin: 04/23/19 21:24 Dose: 30 mg Insulin Human Lispro (Humalog) 0 unit SUBCUT QIDACANDBED [facility]; Protocol Last Admin: 04/24/19 07:46 Dose: Not Given Levothyroxine Sodium (Levothyroxine) 75 mcg PO ACBREAKFAST [facility] Last Admin: 04/24/19 07:52 Dose: 75 mcg Lisinopril (Prinivil) 10 mg PO DAILY [facility] Last Admin: 04/24/19 09:09 Dose: 10 mg Lorazepam (Ativan) 0.5 mg IVPUSH Q4H PRN PRN Reason: Nausea/Vomiting Magnesium Hydroxide (Milk Of Magnesia) 30 ml PO Q12H PRN PRN Reason: Constipation Melatonin (Melatonin) 9 mg PO BEDTIME PRN PRN Reason: Sleep Last Admin: 04/20/19 20:43 Dose: 9 mg Non-Formulary Medication (Pioglitazone [Actos]) 30 mg PO DAILY [facility] Ondansetron HCl (Zofran Odt) 4 mg PO Q6H PRN PRN Reason: Nausea able to take PO Ondansetron HCl (Zofran) 4 mg IV Q6H PRN PRN Reason: Nausea/Vomiting Oxybutynin Chloride (Oxybutynin) 5 mg PO BID [facility] Last Admin: 04/24/19 09:09 Dose: 5 mg Potassium Chloride (Klor-Con M20) 40 meq PO BID [facility] Last Admin: 04/24/19 09:09 Dose: 40 meq Senna/Docusate Sodium (Senna Plus) 1 tab PO BID [facility] Last Admin: 04/24/19 09:09 Dose: 1 tab Sertraline HCl (Zoloft) 25 mg PO DAILY [facility] Last Admin: 04/24/19 09:10 Dose: 25 mg Tramadol HCl (Ultram) 50 mg PO Q6H PRN PRN Reason: Pain (mild 1-3) Last Admin: 04/22/19 03:55 Dose: 50 mg Discontinued Medications Acetaminophen (Tylenol) 650 mg PO Q4H PRN PRN Reason: Fever Greater Than 101 Hydrocodone Bitart/Acetaminophen ([place] 325-5 Mg) 1 tab PO Q4H PRN PRN Reason: Pain (moderate 4-6) Fentanyl (Sublimaze) Confirm Administered Dose [address] .[facility]-MED ONE Stop: 04/21/19 15:13 Hydromorphone HCl (Dilaudid) 0.5 mg IVPUSH Q2H PRN PRN Reason: Pain (severe 7-10) Last Admin: 04/21/19 10:04 Dose: 0.5 mg Sodium Chloride (Normal Saline) 1,000 mls @ 500 mls/hr IV ASDIRECTED [facility] Last Admin: 04/20/19 16:48 Dose: 500 mls/hr Sodium Chloride (Normal Saline) 1,000 mls @ 75 mls/hr IV ASDIRECTED [facility] Last Infusion: 04/22/19 05:44 Dose: 100 mls/hr Cefazolin Sodium/Dextrose 2 gm (/ Premix) 50 mls @ 100 mls/hr IV ONETIME ONE Stop: 04/21/19 15:59 Last Admin: 04/21/19 16:41 Dose: 100 mls/hr Sodium Chloride (Normal Saline) 1,000 mls @ 100 mls/hr IV ASDIRECTED [facility] Last Admin: 04/23/19 04:59 Dose: 100 mls/hr Midazolam HCl (Versed 1 Mg/Ml) Confirm Administered Dose 2 mg .ROUTE .STK-MED ONE Stop: 04/21/19 15:13 Oxycodone HCl (Oxycodone) 5 - 10 mg PO Q4H PRN PRN Reason: Pain Last Admin: 04/21/19 00:37 Dose: 5 mg Oxycodone HCl (Oxycodone) 5 mg PO Q4H PRN PRN Reason: Pain (severe 7-10) Potassium Chloride (Klor-Con M20) 40 meq PO ONETIME ONE Stop: 04/22/19 11:31 Last Admin: 04/22/19 12:04 Dose: 40 meq Povidone Iodine (Betadine 10% Soln) Confirm Administered Dose 1 ml .ROUTE .STK- MED ONE Stop: 04/21/19 17:49 Last Admin: 04/21/19 17:56 Dose: 15 ml Propofol (Diprivan 20 Ml) Confirm Administered Dose 200 mg .ROUTE .STK-MED ONE Stop: 04/21/19 15:13 Propofol (Diprivan 20 Ml) Confirm Administered Dose 200 mg .ROUTE .STK-MED ONE Stop: 04/21/19 17:49 Senna/Docusate Sodium (Senna Plus) 1 tab PO BID PRN PRN Reason: Constipation - Exam Quality Assessment: Denies: Supplemental Oxygen General: Reports: Alert, Oriented, Cooperative, No Acute Distress Lungs: Reports: Normal Respiratory Effort Cardiovascular: Reports: Regular Rate, Regular Rhythm GI/Abdominal Exam: Soft, No Distention Extremities: No Pedal Edema Wound/Incisions: Reports: Dressing Dry and Intact Psy/Mental Status: Reports: Alert, Normal Affect *Q Meaningful Use (DIS) - VTE *Q VTE Pharmacological Contraindications *Q: Patient Scheduled Surgery
--- NOTE | 2019-05-06 18:34 | OR ---
DATE OF PROCEDURE: 04/21/2019 SURGEON: Carlitos Kiser MD PREOPERATIVE DIAGNOSIS: Displaced right femoral neck fracture. POSTOPERATIVE DIAGNOSIS: Displaced right femoral neck fracture. PROCEDURE: Hemiarthroplasty, right hip, using Andreas M/L taper stem and bipolar head. ANESTHESIA: Spinal with sedation. INDICATIONS: Pinky is a 78-year-old female who sustained a fall at her home, resulting in injury to her right hip. Evaluation in the emergency room revealed a completely displaced fracture of the femoral neck. She is therefore taken to the operating room today for hemiarthroplasty of the right hip. Risks, benefits, and potential complications of the procedure were discussed with the patient, and she agrees to proceed. DESCRIPTION OF PROCEDURE: After adequate anesthesia was obtained, the patient was placed in a lateral decubitus position and secured with the hip positioner. Right hip and leg were then prepped and draped in a sterile fashion. A longitudinal incision was made over the lateral aspect of the hip and carried down through the subcutaneous tissues. Hemostasis was obtained with electrocautery. Tensor fascia and IT band were split in line with the fibers and a Charnley retractor was placed. Short external rotators were taken off the greater trochanter along with the capsule in a single layer. Capsule was divided in a T-fashion. The leg was internally rotated exposing the femoral neck fracture. The femoral neck was recut with an oscillating saw, and the fragment was removed. Femoral head was then removed and measured. Soft tissues were cleared from the central acetabulum and a trial head was placed within the acetabulum with a very good fit. The trial was removed. A box osteotome was used to remove the lateral femoral neck cortex. A hand awl was placed down the femoral canal, and the canal was then sequentially broached with the M/L taper broaches. After the appropriate size was selected, the final M/L taper stem was tapped into position. Trial reduction was then made with the femoral neck lengths with 0 neck length providing excellent balance in flexion and extension. Bipolar head was assembled and placed onto the Del [place]illo taper. Hip was then reduced and again taken through range of motion and found to be very stable. It was then irrigated. This was followed by irrigation with a dilute Betadine solution and a final irrigation with the pulse lavage. Posterior capsule and external rotators were then repaired back to the greater trochanter with a #2 Ethibond. Tensor fascia was repaired in a running locking fashion. Skin was closed with 2-0 Vicryl and a running 3-0 Monocryl. Steri-Strips were applied. The patient tolerated the procedure well. There were no complications. She was taken from the operating room in stable condition. Carlitos Kiser MD /[id number]
== END 2019-04-24 12:37 | DRG 470 ==
LOC: JP.ED 15:24 → JP.MS 17:49
PROVIDERS: ADMIT Internal Medicine; ATTEND Internal Medicine
PROC: 0SRR0JZ Replacement of Right Hip Joint, Femoral Surface with Synthetic Substitute, Open Approach (ICD-10-PCS; principal; 2019-04-21)
DX: S72.001A Fracture of unspecified part of neck of right femur, initial encounter for closed fracture (principal); D62 Acute posthemorrhagic anemia; S60.511A Abrasion of right hand, initial encounter; W18.30XA Fall on same level, unspecified, initial encounter; Y92.000 Kitchen of unspecified non-institutional (private) residence as the place of occurrence of the external cause; M62.838 Other muscle spasm; E11.9 Type 2 diabetes mellitus without complications; E03.9 Hypothyroidism, unspecified; R41.0 Disorientation, unspecified; K21.9 Gastro-esophageal reflux disease without esophagitis; I10 Essential (primary) hypertension; I25.10 Atherosclerotic heart disease of native coronary artery without angina pectoris; W19.XXXA Unspecified fall, initial encounter; H54.7 Unspecified visual loss; E78.00 Pure hypercholesterolemia, unspecified; R32 Unspecified urinary incontinence; M19.90 Unspecified osteoarthritis, unspecified site; G62.9 Polyneuropathy, unspecified; G25.81 Restless legs syndrome; M48.00 Spinal stenosis, site unspecified; F41.9 Anxiety disorder, unspecified; Z79.82 Long term (current) use of aspirin; Z88.2 Allergy status to sulfonamides; Z79.899 Other long term (current) drug therapy; Z79.890 Hormone replacement therapy; Y92.009 Unspecified place in unspecified non-institutional (private) residence as the place of occurrence of the external cause
CPT/HCPCS: 36415; 71045; 72040 ×2; 72125; 73502 ×2; 80053; 81001; 85025; 93005; 93010; 96360; 99284; 99285; J7030; 72170; 80048; 82962; 84132; 84443; 85018; 85027; 86850; 86900; 86901; 86920; 86922; 97110-GP; 97140-GP; 97162-GP; 97165-GO; 97530-GP; A9270-GY; C1776; J0690; J1170; J1650; J1815; J2250; J2704; J3010

== ENCOUNTER 2020-01-09 23:14 | Emergency (ER) | payer MEDICARE, MEDICAID ==
--- NOTE | 2020-01-10 00:05 | EDM.PDOC ---
ED HPI GENERAL MEDICAL PROBLEM - General Chief Complaint: Abdominal Pain Stated Complaint: [facility] Time Seen by Provider: 01/09/20 23:55 Source of Information: Reports: Patient, EMS History Limitations: Reports: No Limitations - History of Present Illness INITIAL COMMENTS - FREE TEXT/NARRATIVE: Patient presents by ambulance from her assisted living facility describing right-sided abdomen, chest, shoulder, neck pain which began this evening. That she remembers, she has not had symptoms like this before. No falls or obvious recalled injuries. No fever or chills although in the room at this time she feels that she is cold. She had some right-sided abdominal pain earlier but that seems to have improved and the residual pain she feels at this time is the right chest shoulder and to a lesser extent the neck area. She has not taken anything for symptoms tonight. She was not sure if she should have brought this to the attention of nurses at her care facility but she did and was then brought in here. No other recognized changes in health. Onset: Sudden Duration: Hour(s): (2) Location: Reports: Chest, Upper Extremity, Right Severity: Moderate Improves with: Reports: None Worsens with: Reports: Movement Associated Symptoms: Reports: No Other Symptoms Upper Abdomen Pain Score (Numeric/FACES): 4 - Related Data Allergies Allergy/AdvReac Type Severity Reaction Status Date / Time Sulfa (Sulfonamide Allergy Cannot Verified 01/09/20 23:38 Antibiotics) Remember Home Meds: Home Meds Aspirin [Halfprin] 81 mg PO DAILY 04/20/19 [History] Ergocalciferol (Vitamin D2) [Vitamin D2] 2,000 unit PO DAILY 04/20/19 [History] Levothyroxine 75 mcg PO ACBREAKFAST 04/20/19 [History] Oxybutynin [Oxybutynin ER] 10 mg PO DAILY 04/20/19 [History] Sertraline [Zoloft] 25 mg PO DAILY 04/20/19 [History] atorvaSTATin [Lipitor] 40 mg PO BEDTIME 04/20/19 [History] lisinopriL [Zestril] 10 mg PO DAILY 04/20/19 [History] Acetaminophen [Tylenol Extra Strength] 1,000 mg PO TID #200 tablet 04/24/19 [Rx] Ferrous Sulfate 325 mg PO BIDMEALS #60 tab 01/31/20 [Rx] Past Medical History HEENT History: Reports: Impaired Vision Cardiovascular History: Reports: CAD, High Cholesterol, Hypertension Respiratory History: Reports: None Gastrointestinal History: Reports: GERD Genitourinary History: Reports: Urinary Incontinence, Other (See Below) Other Genitourinary History: renal insufficiency Musculoskeletal History: Reports: Osteoarthritis, Other (See Below) Other Musculoskeletal History: restless leg syndrome, spinal stenosis Neurological History: Reports: Vertigo Psychiatric History: Reports: Anxiety Endocrine/Metabolic History: Reports: Diabetes, Type II, Hypothyroidism, Other (See Below) Other Endocrine/Metabolic History: neuropathy Hematologic History: Reports: None Immunologic History: Reports: None Oncologic (Cancer) History: Reports: None Dermatologic History: Reports: None - Infectious Disease History Infectious Disease History: Reports: Chicken Pox, Measles, Mumps - Past Surgical History Musculoskeletal Surgical History: Reports: Hip Replacement Other Musculoskeletal Surgeries/Procedures:: ORIF right hip Social & Family History - Tobacco Use Tobacco Use Status *Q: Never Tobacco User Second Hand Smoke Exposure: No - Caffeine Use Caffeine Use: Reports: None - Recreational Drug Use Recreational Drug Use: No ED ROS GENERAL - Review of Systems Review Of Systems: See Below Constitutional: Denies: Fever, Chills, Malaise, Decreased Appetite HEENT: Reports: No Symptoms Respiratory: Reports: Pleuritic Chest Pain Cardiovascular: Reports: No Symptoms GI/Abdominal: Reports: Abdominal Pain (Earlier but better now.) : Reports: No Symptoms Musculoskeletal: Reports: Arm Pain (Rate elbow, arm, shoulder region.) Skin: Reports: No Symptoms Neurological: Reports: No Symptoms ED EXAM, GI/ABD - Physical Exam Exam: See Below Text/Narrative:: This is a conversant adult female interviewed in room 5. Exam Limited By: No Limitations General Appearance: Alert, Mild Distress Throat/Mouth: Normal Oropharynx Head: Atraumatic Neck: Supple, Non-Tender Respiratory/Chest: No Respiratory Distress, Other (Pain on palpation of the right lateral upper ribs.) Cardiovascular: Regular Rate, Rhythm GI/Abdominal Exam: Normal Bowel Sounds, Soft, Non-Tender Back Exam: Normal Inspection Extremities: Arm Pain (Pain on palpation along the entire right humerus although it is inconsistently painful on touch.) Neurological: Alert, Oriented Course - Vital Signs Last Recorded V/S: Last Vital Signs Temp 36.2 C 01/09/20 23:44 Pulse 61 01/09/20 23:44 Resp 23 H 01/09/20 23:44 BP 185/75 H 01/09/20 23:44 Pulse Ox 98 01/09/20 23:44 - Orders/Labs/Meds Orders: Active Orders 24 hr Category Date Time Status Humerus Rt [CR] Stat Exams 01/10/20 00:08 Ordered Ribs 2V w Chest Rt [CR] Stat Exams 01/10/20 00:09 Ordered Labs: Laboratory Tests 01/10/20 01/10/20 01/10/20 Range/Units 00:08 00:43 00:43 WBC 5.9 (4.5-11.0) K/uL RBC 3.83 (3.30-5.50) M/uL Hgb 12.2 D (12.0-15.0) g/dL Hct 37.8 (36.0-48.0) % MCV 99 H (80-98) fL MCH 32 H (27-31) pg MCHC 32 (32-36) % Plt Count 292 (150-400) K/uL Neut % (Auto) 48 (36-66) % Lymph % (Auto) 41 (24-44) % Stark % (Auto) 9 H (2-6) % Eos % (Auto) 1 L (2-4) % Baso % (Auto) 1 (0-1) % Sodium 139 L (140-148) mmol/L Potassium 4.1 (3.6-5.2) mmol/L Chloride 105 (100-108) mmol/L Carbon Dioxide 30 (21-32) mmol/L Anion Gap 8.1 (5.0-14.0) mmol/L BUN 26 H (7-18) mg/dL Creatinine 1.0 (0.6-1.0) mg/dL Est Cr Clr Drug Dosing 38.75 mL/min Estimated GFR (MDRD) 53 L (>60) Glucose 98 (74-106) mg/dL Calcium 8.8 (8.5-10.1) mg/dL Total Bilirubin 0.5 (0.2-1.0) mg/dL AST 18 (15-37) U/L ALT 36 (12-78) U/L Alkaline Phosphatase 76 (46-116) U/L Troponin I < 0.017 (0.000-0.056) ng/mL C-Reactive Protein < 0.05 (0.0-0.3) mg/dL Total Protein 6.1 L (6.4-8.2) g/dL Albumin 3.3 L (3.4-5.0) g/dL Globulin 2.8 (2.3-3.5) g/dL Albumin/Globulin Ratio 1.2 (1.2-2.2) - Re-Assessments/Exams Free Text/Narrative Re-Assessment/Exam: 01/10/20 04:49 The abdomen is soft and without discomfort at this time. We will arrange imaging of the ribs and right humerus/shoulder region. Imaging studies later showed normal radiographic appearance, no evidence of fracture. Other than some minimal alterations in lab studies, her metabolic profile looks fine. I do not see anything alarming tonight. She can be returned to her assisted living facility although at this hour of the night there are no drivers available. She will have to remain here until transportation to be arranged during daylight hours. 01/10/20 04:50 Departure - Departure Time of Disposition: 01:29 Disposition: Home, Self-Care 01 Clinical Impression: Arm pain, right, Chest wall pain - Discharge Information Referrals: PCP,None [Primary Care Provider] - Forms: ED Department Discharge Additional Instructions: Continue current medications and cares. Use Tylenol 650 mg up to 4 times a day as needed for pain. Sepsis Event Note (ED) - Evaluation Sepsis Screening Result: No Definite Risk - Focused Exam Vital Signs: Vital Signs Temp Pulse Resp BP Pulse Ox 01/09/20 23:44 36.2 C 61 23 H 185/75 H 98 01/09/20 23:17 36.2 C 61 23 H 185/75 H 98 - My Orders Last 24 Hours: My Active Orders 01/10/20 00:08 Humerus Rt [CR] Stat 01/10/20 00:09 Ribs 2V w Chest Rt [CR] Stat - Assessment/Plan Last 24 Hours: My Active Orders 01/10/20 00:08 Humerus Rt [CR] Stat 01/10/20 00:09 Ribs 2V w Chest Rt [CR] Stat
--- NOTE | 2020-01-11 09:46 | CR ---
Ribs 2V w Chest Rt CLINICAL HISTORY: Right chest wall pain FINDINGS: There is no acute fracture within the ribs. No destructive changes are seen. There is no focal pleural thickening or obvious effusion. There are some deformities of right upper lateral ribs from old fracture. These are also seen in April 13, 2019. Lungs are hyperaerated. IMPRESSION: No acute rib fractures seen Old healed right rib fractures superior laterally
--- NOTE | 2020-01-11 09:48 | CR ---
Humerus Rt CLINICAL HISTORY: Pain FINDINGS: There is no acute fracture within the humerus. There is moderate osteophytic change in the AC joint. There is acromial spurring likely causing impingement on the rotator cuff. There is some calcific tendinosis IMPRESSION: No acute fracture or dislocation Osteophytic changes at the AC joint with probable rotator cuff impingement Calcific tendinosis Old right rib fractures
== END 2020-01-10 13:01 | disposition home or self-care (01) ==
LOC: JP.ED 23:14
DX: R07.89 Other chest pain (principal); M79.601 Pain in right arm; R10.10 Upper abdominal pain, unspecified; I10 Essential (primary) hypertension; E78.00 Pure hypercholesterolemia, unspecified; I25.10 Atherosclerotic heart disease of native coronary artery without angina pectoris; E03.9 Hypothyroidism, unspecified; E11.40 Type 2 diabetes mellitus with diabetic neuropathy, unspecified; F41.9 Anxiety disorder, unspecified; Z88.2 Allergy status to sulfonamides; Z79.82 Long term (current) use of aspirin; Z79.899 Other long term (current) drug therapy
CPT/HCPCS: 36415; 71101-26-RT; 71101-RT; 73060-26-RT; 73060-RT; 80053; 84484; 85025; 86140; 99284-25